=== PATIENT | female | born 1965 | race Caucasian/White ===

== ENCOUNTER 2018-12-22 06:33 | Observation (INO) | payer BC, OTHER ==
[2018-12-22] MEDS ORDERED: ASPIRIN 81 MG CHEWABLE TABLET ONE (07:09)
[2018-12-22] MEDS ORDERED: NITROGLYCERIN 0.4 MG/TAB SL ONE (07:09)
[2018-12-22 07:14] LABS: Absolute Lymphocytes (CBC) 2.7 K/uL (0.7-4.9); Basophils % 1.2 % (0-1.3); Hematocrit 40.2 % (36.0-45.0); Lymphocytes % 33.6 % (15.3-44.8); MPV 10.8 fL (7.6-11.3); RBC Red Blood Cell Count 4.38 M/uL (3.86-4.86)
[2018-12-22 07:15] LABS: Protime INR 1.02
[2018-12-22 07:31] LABS: ALT/SGPT 27 U/L (12-78); AST/SGOT 19 U/L (15-37); Albumin 3.4 g/dL (3.4-5.0); Alkaline Phosphatase 90 U/L (45-117); BUN Blood Urea Nitrogen 17 mg/dL (7-18); Bicarbonate 26 mmol/L (21-32); Bilirubin Direct 0.1 mg/dL (0-0.2); Bilirubin Total 0.3 mg/dL (0.2-1.0); Glucose Level 115 mg/dL (74-106); Magnesium 1.8 mg/dL (1.8-2.4); NT PRO-BNP 40 pg/mL (<125); Protein, Total 7.1 g/dL (6.4-8.2); Sodium Level 139 mmol/L (136-145); Troponin (Emerg Dept Use Only) < 0.02 ng/mL (0.0-0.045)
--- NOTE | 2018-12-22 08:00 | ER ---
Nurse's Notes [facility] Name: Anahy Irvin Age: 53 yrs Sex: Female : 1965 Arrival Date: 12/22/2018 Time: 06:35 Bed 8 Private MD: Luis Fernando Gold B Diagnosis: Chest pain, unspecified Presentation: 12/22 06:35 Presenting complaint: Patient states: that for the past week she has been have chest fc tightness. Has seen Dr Rodrigues in the past and told she had a leaking heart valve and enlarged heart but needed to lose wt before these could be treated. But today the pain got worse and now radiates down the left arm and up to her jaw. She is also having some shortness of breath and nausea. Transition of care: patient was not received from another setting of care. Onset of symptoms was December 14, 2018. Risk Assessment: Do you want to hurt yourself or someone else? Patient reports no desire to harm self or others. Initial Sepsis Screen: Does the patient meet any 2 criteria? No. Patient's initial sepsis screen is negative. Does the patient have a suspected source of infection? No. Patient's initial sepsis screen is negative. Care prior to arrival: None. 06:35 Method Of Arrival: Wheelchair fc 06:35 Acuity: OSIEL 3 fc Triage Assessment: 06:50 General: Appears uncomfortable, Behavior is appropriate for age. Pain: Complains of lp1 pain in chest. Cardiovascular: Patient's skin is warm and dry. Respiratory: Reports shortness of breath at rest Respiratory effort is even. GI: Abdomen is obese. Derm: Skin is pink, warm \T\ dry. 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 - Social history:: Smoking status: Patient/guardian denies using tobacco, Patient uses alcohol, but reports only rare drinking. Patient/guardian denies using street drugs. - Ebola Screening: : Patient negative for fever greater than or equal to 101.5 degrees Fahrenheit, and additional compatible Ebola Virus Disease symptoms Patient denies exposure to infectious person Patient denies travel to an Ebola-affected area in the 21 days before illness onset. Screenin:40 Abuse screen: Denies threats or abuse. Nutritional screening: No deficits noted. fc Tuberculosis screening: No symptoms or risk factors identified. Fall Risk None identified. Assessment: 07:05 General: Appears in no apparent distress. uncomfortable, ill, Behavior is calm, jl7 cooperative, appropriate for age. Pain: Complains of pain in under left breast/ left upper side Pain radiates to left jaw Pain currently is 5 out of 10 on a pain scale. at worst was 7 out of 10 on a pain scale. Quality of pain is described as pressure, throbbing, Pain began a week ago, worsening today Is intermittent. Neuro: Level of Consciousness is awake, alert, obeys commands, Oriented to person, place, time, situation. Cardiovascular: Heart tones present Patient's skin is warm and dry. Rhythm is regular. Respiratory: Reports shortness of breath Airway is patent Respiratory effort is even, unlabored, Respiratory pattern is regular, symmetrical, Breath sounds are clear bilaterally. GI: Abdomen is round non-distended, Reports nausea. Derm: Skin is pink, warm \T\ dry. 07:30 Reassessment: Patient appears in no apparent distress at this time. Patient is alert, jl7 oriented x 3, equal unlabored respirations, skin warm/dry/pink. Patient states feeling better. Patient states symptoms have improved. 08:30 Reassessment: Patient appears in no apparent distress at this time. No changes from jl7 previously documented assessment. Patient and/or family updated on plan of care and expected duration. Pain level reassessed. Patient is alert, oriented x 3, equal unlabored respirations, skin warm/dry/pink. 09:30 Reassessment: Patient appears in no apparent distress at this time. Patient and/or jl7 family updated on plan of care and expected duration. Pain level reassessed. Patient is alert, oriented x 3, equal unlabored respirations, skin warm/dry/pink. Vital Signs: 06:35 BP 160 / 83; Pulse 89; Resp 18; Temp 97.9(O); Pulse Ox 98% on R/A; Weight 156.94 kg fc (R); Height 5 ft. 2 in. (157.48 cm) (R); Pain 6/10; 07:30 BP 133 / 76; Pulse 72; Resp 16 S; Pulse Ox 99% on R/A; Pain 4/10; jl7 07:30 Pain 4/10; jl7 09:00 BP 135 / 75; Pulse 72; Resp 17; Pulse Ox 97% ; jl7 10:00 BP 120 / 79; Pulse 68; Resp 19; Pulse Ox 97% ; Pain 4/10; jl7 06:35 Body Mass Index 63.28 (156.94 kg, 157.48 cm) fc ED Course: 06:35 Patient arrived in ED. es 06:35 Arm band placed on Patient placed in an exam room, on a stretcher. fc 06:36 Luis Fernando Gold MD is Private Physician. es 06:38 Bernardo Borjas PA is PHCP. jr8 06:38 Nelson Argueta MD is Attending Physician. jr8 06:40 Patient has correct armband on for positive identification. Placed in gown. Bed in low fc position. Call light in reach. Side rails up X 1. air sampling and monitoring on. Pulse ox on. NIBP on. 06:40 No provider procedures requiring assistance completed. fc 06:50 Triage completed. fc 06:50 Inserted saline lock: 22 gauge in left forearm, using aseptic technique. Blood lp1 collected. 06:50 Patient maintains SpO2 saturation greater than 95% on room air. lp1 07:06 Saman Braun, JAIME is Primary Nurse. jl7 07:26 XRAY Chest (1 view) In Process Unspecified. EDMS 07:59 Asif Castro DO is Hospitalizing Provider. jr8 10:33 Patient admitted, IV remains in place. intact, No redness/swelling at site. jl7 Administered Medications: 07:12 Drug: Nitroglycerin 0.4 mg Route: Sublingual; jl7 07:30 Follow up: Pain 4/10 Adult; Response: No adverse reaction; Pain is decreased jl7 07:12 Drug: Aspirin Chewable Tablet 324 mg Route: PO; jl7 10:32 Follow up: Response: No adverse reaction jl7 Outcome: 07:59 Decision to Hospitalize by Provider. jr8 10:33 Admitted to Tele accompanied by tech, family with patient, via wheelchair, room 207, jl7 with chart, Report called to JAIME TREJO 10:33 Condition: stable 10:33 Discharge instructions given to patient, family, Instructed on the need for admit, Demonstrated understanding of instructions. 10:42 Patient left the ED. ms Signatures: Dispatcher [employer] Loyda Veloz Felicia, RN RN Dina Mathews ms Divina Will, RN RN lp1 Bernardo Borjas PA PA jr8 Saman Braun RN RN jl7
--- NOTE | 2018-12-22 08:01 | EDPHYS ---
Physician Documentation [facility] [place], [place] Name: Anahy Irvin Age: 53 yrs Sex: Female : 1965 Arrival Date: 12/22/2018 Time: 06:35 Bed 8 Private MD: Luis Fernando Gold B ED Physician Nelson Argueta HPI: 12/22 07:20 This 53 yrs old Female presents to ER via Wheelchair with complaints of Chest jr8 Pain. 07:20 The patient or guardian reports chest pain that is located primarily in the substernal jr8 area. Onset: acutely, today. The pain radiates to the left shoulder, left neck. Associated signs and symptoms: Pertinent positives: shortness of breath. The chest pain is described as a pressure. Duration: The patient or guardian reports a single episode, that lasted 2 hour(s). Modifying factors: The symptoms are alleviated by nothing. the symptoms are aggravated by activity. Severity of pain: At its worst the pain was moderate in the emergency department the pain has improved moderately. The patient has not experienced similar symptoms in the past. The patient has not recently seen a physician. Patient stated that she is currently undergoing weight loss protocol dom Mejia. Stated that she was diagnosed with valvular disease and enlarged heart. Has on/off chest pain that usually self resolves and is mild. Today had sudden severe chest pain with radiation. Improved but not going away now . 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 - Social history:: Smoking status: Patient/guardian denies using tobacco, Patient uses alcohol, but reports only rare drinking. Patient/guardian denies using street drugs. - Ebola Screening: : Patient negative for fever greater than or equal to 101.5 degrees Fahrenheit, and additional compatible Ebola Virus Disease symptoms Patient denies exposure to infectious person Patient denies travel to an Ebola-affected area in the 21 days before illness onset. ROS: 07:20 Eyes: Negative for injury, pain, redness, and discharge, ENT: Negative for injury, jr8 pain, and discharge, Neck: Negative for injury, pain, and swelling, Abdomen/GI: Negative for abdominal pain, nausea, vomiting, diarrhea, and constipation, Back: Negative for injury and pain, MS/Extremity: Negative for injury and deformity, Skin: Negative for injury, rash, and discoloration, Neuro: Negative for headache, weakness, numbness, tingling, and seizure. 07:20 Cardiovascular: Positive for chest pain, Negative for edema, orthopnea, palpitations, paroxysmal nocturnal dyspnea. 07:20 Respiratory: Positive for shortness of breath. Exam: 07:20 Eyes: Pupils equal round and reactive to light, extra-ocular motions intact. Lids and jr8 lashes normal. Conjunctiva and sclera are non-icteric and not injected. Cornea within normal limits. Periorbital areas with no swelling, redness, or edema. ENT: Nares patent. No nasal discharge, no septal abnormalities noted. Tympanic membranes are normal and external auditory canals are clear. Oropharynx with no redness, swelling, or masses, exudates, or evidence of obstruction, uvula midline. Mucous membranes moist. Neck: Trachea midline, no thyromegaly or masses palpated, and no cervical lymphadenopathy. Supple, full range of motion without nuchal rigidity, or vertebral point tenderness. No Meningismus. Abdomen/GI: Soft, non-tender, with normal bowel sounds. No distension or tympany. No guarding or rebound. No evidence of tenderness throughout. Back: No spinal tenderness. No costovertebral tenderness. Full range of motion. Skin: Warm, dry with normal turgor. Normal color with no rashes, no lesions, and no evidence of cellulitis. MS/ Extremity: Pulses equal, no cyanosis. Neurovascular intact. Full, normal range of motion. Neuro: Awake and alert, GCS 15, oriented to person, place, time, and situation. Cranial nerves II-XII grossly intact. Motor strength 5/5 in all extremities. Sensory grossly intact. Cerebellar exam normal. Normal gait. 07:20 Cardiovascular: Regular rate and rhythm with a normal S1 and S2. No gallops, murmurs, or rubs. Normal PMI, no JVD. No pulse deficits. Pitting edema present lower legs Respiratory: Lungs have equal breath sounds bilaterally, clear to auscultation and percussion. No rales, rhonchi or wheezes noted. No increased work of breathing, no retractions or nasal flaring. Vital Signs: 06:35 BP 160 / 83; Pulse 89; Resp 18; Temp 97.9(O); Pulse Ox 98% on R/A; Weight 156.94 kg fc (R); Height 5 ft. 2 in. (157.48 cm) (R); Pain 6/10; 07:30 BP 133 / 76; Pulse 72; Resp 16 S; Pulse Ox 99% on R/A; Pain 4/10; jl7 07:30 Pain 4/10; jl7 09:00 BP 135 / 75; Pulse 72; Resp 17; Pulse Ox 97% ; jl7 10:00 BP 120 / 79; Pulse 68; Resp 19; Pulse Ox 97% ; Pain 4/10; jl7 06:35 Body Mass Index 63.28 (156.94 kg, 157.48 cm) fc MDM: 06:38 Patient medically screened. jr8 07:52 HEART Score: History: Moderately Suspicious (1), ECG: Normal (0), Age: > 45 and < 65 jr8 years (1), Risk Factors: > or = 3 Risk factors for atherosclerotic disease (2), [Hypercholesterolemia] [Hypertension] [Obesity] Troponin: < or = 1 x Normal Limit (0). The patient was given aspirin in the Emergency Department. Data reviewed: vital signs, nurses notes, lab test result(s), EKG, radiologic studies, plain films. Data interpreted: Pulse oximetry: on room air is 98 %. Interpretation: normal. Counseling: I had a detailed discussion with the patient and/or guardian regarding: the historical points, exam findings, and any diagnostic results supporting the discharge/admit diagnosis, lab results, radiology results, the need for further work-up and treatment in the hospital. Physician consultation: Asif Castro DO was called at 07:56, was contacted at 07:56, regarding admission, to the telemetry unit. patient's condition, and will see patient in ED. 12/22 07:03 Order name: Basic Metabolic Panel; Complete Time: 07:45 8 12/22 07:03 Order name: CBC with Diff; Complete Time: 07:24 8 12/22 07:03 Order name: LFT's; Complete Time: 07:45 12/22 07:03 Order name: Magnesium; Complete Time: 07:45 12/22 07:03 Order name: NT PRO-BNP; Complete Time: 07:45 12/22 07:03 Order name: PT-INR; Complete Time: 07:24 12/22 07:03 Order name: Troponin (emerg Dept Use Only); Complete Time: 07:45 12/22 07:03 Order name: XRAY Chest (1 view); Complete Time: 08:39 [facility] 12/22 07:03 Order name: EKG; Complete Time: 07:04 12/22 07:03 Order name: Cardiac monitoring; Complete Time: 07:03 [facility] 12/22 08:35 Order name: CONS Physician Consult EDPA 12/22 08:35 Order name: Echo with Doppler EDPA 12/22 07:03 Order name: EKG - Nurse/Tech; Complete Time: 07:03 12/22 07:03 Order name: IV Saline Lock; Complete Time: 07:03 [facility] 12/22 07:03 Order name: Labs collected and sent; Complete Time: 07:03 8 12/22 07:03 Order name: O2 Per Protocol; Complete Time: 07:03 [facility] 12/22 07:03 Order name: O2 Sat Monitoring; Complete Time: 07:03 [facility] Administered Medications: 07:12 Drug: Nitroglycerin 0.4 mg Route: Sublingual; 7 07:30 Follow up: Pain 4/10 Adult; Response: No adverse reaction; Pain is decreased jl7 07:12 Drug: Aspirin Chewable Tablet 324 mg Route: PO; jl7 10:32 Follow up: Response: No adverse reaction jl7 Disposition: 12/23 04:20 Co-signature as Attending Physician, Nelson Argueta MD I agree with the assessment and ila plan of care. Disposition: 12/22/18 07:59 Hospitalization ordered by Asif Castro for Observation. Preliminary diagnosis is Chest pain, unspecified. - Bed requested for Telemetry/MedSurg (observation). - Status is Observation. ms - Condition is Stable. - Problem is new. - Symptoms have improved. UTI on Admission? No Signatures: Dispatcher [employer] Lisy Pardo, RN RN Nelson Hanson MD MD cha Chretien, Felicia, RN RN Dina Hernandez ms [place], Bernardo, PA PA jr8 Saman Braun RN RN jl7 Corrections: (The following items were deleted from the chart) 12/22 07:24 07:20 Cardiovascular: Regular rate and rhythm with a normal S1 and S2. No gallops, jr8 murmurs, or rubs. Normal PMI, no JVD. No pulse deficits. Respiratory: Lungs have equal breath sounds bilaterally, clear to auscultation and percussion. No rales, rhonchi or wheezes noted. No increased work of breathing, no retractions or nasal flaring. jr8 09:03 07:59 Hospitalization Ordered by Asif Castro DO for Observation. Preliminary dw diagnosis is Chest pain, unspecified. Bed requested for Telemetry/MedSurg (observation). Status is Observation. Condition is Stable. Problem is new. Symptoms have improved. UTI on Admission? No. jr8 10:42 09:03 12/22/2018 07:59 Hospitalization Ordered by Asif Castro DO for Observation. ms Preliminary diagnosis is Chest pain, unspecified. Bed requested for Telemetry/MedSurg (observation). Status is Observation. Condition is Stable. Problem is new. Symptoms have improved. UTI on Admission? No. dw
--- NOTE | 2018-12-22 08:28 | RAD REPORT ---
EXAM DESCRIPTION: Prabhu Single View12/22/2018 7:28 am CLINICAL HISTORY: Chest pain COMPARISON: 2014 FINDINGS: The lungs appear clear of acute infiltrate. The heart is mildly enlarged IMPRESSION: No acute abnormalities displayed
--- NOTE | 2018-12-22 08:37 | P.HP ---
Certification for Inpatient Patient admitted to: Observation With expected LOS: <2 Midnights Patient will require the following post-hospital care: None Practitioner: I am a practitioner with admitting privileges, knowledge of patient current condition, hospital course, and medical plan of care. Services: Services provided to patient in accordance with Admission requirements found in Title 42 Section 412.3 of the Code of Federal Regulations Patient History Date of Service: 12/22/18 Primary Care Provider: Dr. Gold; Cardiology-Dr. Rodrigues Reason for admission: Chest pain History of Present Illness: 53-year-old female with history of hypertension, depression/anxiety and obesity. Patient presented with chest pain that started around 5:00 a.m. this morning. It was mainly to the substernal region. It was a pressure-like sensation. She rated the pain about a 7/10. It would radiate up the neck and to both arms. It was associated with some dizziness. Patient came to the ER for further evaluation. In the ER patient evaluated. Blood pressure slightly elevated. She was given aspirin and nitroglycerin for the chest pain which improved. Initial cardiac enzymes unremarkable. EKG shows no significant EKG changes. CBC unremarkable. Sodium 139, potassium 4.0. BUN of 17, creatinine 0.8 with a GFR 71. Glucose 115. Patient was admitted for further evaluation. When I saw the patient in the ER, chest pain improved. Patient reports that she last saw Cardiology-Dr. Rodrigues in June of this year. She reported having a stress test and echocardiogram at that time. She believes that the stress test was normal. Echocardiogram showed some mild valve problems with some cardiomegaly. Patient has been taking carvedilol. This was recently increased to 25 mg 1 pill twice daily. She only took 25 mg daily recently. Patient also reports taking Dyazide in the past but not taking it since this causes too much urination. Patient does not smoke. No family history of heart disease. She is in the process of getting a gastric sleeve. She has lost 16 lb since June. Allergies morphine Allergy (Verified 11/07/14 09:04) Rash Pork/Porcine Containing Products Adverse Reaction (Verified 11/07/14 09:04) Shortness of breath Doxycycline Allergy (Uncoded 11/06/14 16:59) Rash Home medications list reviewed: Yes Home Medications: Carvedilol [Coreg*] 12.5 mg PO BID 09/13/14 Lorcaserin HCl [Belviq] 10 mg PO BID 09/13/14 - Past Medical/Surgical History Diabetic: No -: Lymphedema -: Morbid Obesity -: HTN -: Hyperlipidemia -: Depression/anxiety -: Nephrolithiasis -: x3 -: Hysterectomy -: Oophorectomy -: Kidney stone removed - multiple -: Tonsillectomy -: Carpal tunnel sx Psychosocial/ Personal History: Patient is single. She has 3 children. 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 - Family History Mother -: Hypertension Sister -: Hypertension Father -: Lung disease - Social History Smoking Status: Never smoker Alcohol use: Yes CD- Drugs: No Caffeine use: Yes Place of Residence: Home Review of Systems General: As per HPI Eyes: Unremarkable ENT: Unremarkable Respiratory: Unremarkable Cardiovascular: Chest Pain, Light Headedness, As per HPI Gastrointestinal: Unremarkable Genitourinary: Unremarkable Musculoskeletal: Unremarkable Integumentary: Unremarkable Neurological: Unremarkable Lymphatics: Unremarkable Physical Examination - Physical Exam General: Alert, In no apparent distress, Oriented x3, Cooperative HEENT: Atraumatic, Normocephalic, Mucous membr. moist/pink, Other Neck: Supple Respiratory: Clear to auscultation bilaterally, Normal air movement Cardiovascular: Normal pulses, Regular rate/rhythm Gastrointestinal: Normal bowel sounds, Soft and benign, Non-distended, No tenderness, No masses, No rebound, No guarding Musculoskeletal: No erythema, No tenderness, No warmth Integumentary: No tenderness/swelling, No erythema, No warmth, No cyanosis Neurological: Normal speech, Normal strength at 5/5 x4 extr, Normal tone, Normal affect - Studies Laboratory Data (last 24 hrs) 12/22/18 06:50: PT 12.0, INR 1.02 12/22/18 06:50: WBC 8.0, Hgb 14.1, Hct 40.2, Plt Count 295 12/22/18 06:50: Sodium 139, Potassium 4.0, BUN 17, Creatinine 0.84, Glucose 115 H, Magnesium 1.8, Total Bilirubin 0.3, AST 19, ALT 27, Alkaline Phosphatase 90 Assessment and Plan - Plan Impression: Chest pain Hypertension Depression/anxiety Obesity Plan: Chest pain: Patient will be admitted for further evaluation and treatment. Will keep the patient NPO at this time. Await Cardiology recommendation. Patient may require cardiac evaluation. Will check echocardiogram. Will continue to monitor cardiac enzymes and telemetry. Will continue with her carvedilol at 25 mg twice daily. Will provide aspirin, Lipitor. Will provide Protonix as chest pain may be noncardiac.. Will provide DVT prophylaxis-SCD. Will check tsh and fasting lipid panel. Await further recommendations from cardiology. If workup unremarkable likely discharge later today or tomorrow. Hypertension: Will increase carvedilol to 25 mg 1 pill twice daily. Previously on carvedilol 12.5 mg twice daily but recently increased to 25 mg twice daily but only taking once daily. Hold Dyazide at this time. Depression/anxiety: Will continue with her bupropion. Obesity: Patient in process of getting gastric sleeve in the near future. Discharge Plan: Home Plan to discharge in: 24 Hours - Advance Directives Does patient have a Living Will: No Does patient have a Durable POA for Healthcare: No - Code Status/Comfort Care Code Status Assessed: Yes (Patient is full code) Time Spent Managing Pts Care (In Minutes): 55
[2018-12-22] MEDS ORDERED: ONDANSETRON 4 MG/2 ML VIAL IV PRN (10:44)
[2018-12-22] MEDS ORDERED: BUPROPION HCL XL 150 MG TAB PO SCH (10:44)
[2018-12-22] MEDS ORDERED: TRAMADOL HCL 50 MG TAB PO PRN (10:44)
[2018-12-22] MEDS ORDERED: buPROPion HCL 100 MG TAB PO SCH (10:44)
[2018-12-22] MEDS ORDERED: ASPIRIN EC 81 MG TAB PO SCH (10:44)
[2018-12-22] MEDS ORDERED: MULTIVITAMIN TAB PO SCH (10:44)
[2018-12-22] MEDS ORDERED: NITROGLYCERIN 0.4 MG/TAB SL PRN (10:44)
[2018-12-22] MEDS ORDERED: ACETAMINOPHEN 500 MG TAB PO PRN (10:44)
--- NOTE | 2018-12-22 11:03 | EKG ---
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
[2018-12-22 11:06] VITALS: BMI 63.3
[2018-12-22 11:11] VITALS: O2SAT 97
--- NOTE | 2018-12-22 11:13 | ECHO ---
HEIGHT: 5 ft 2 in WEIGHT: 346 lb 0 oz DATE OF STUDY: 12/22/[address]: Asif Castro DO 2-DIMENSIONAL: YES M.MODE: YES DOPPLER: YES COLOR FLOW: YES TDS: YES PORTABLE: NO DEFINITY: NO BUBBLE STUDY: NO DIAGNOSIS: CHEST PAIN CARDIAC HISTORY: CATHERIZATION: NO SURGERY: NO PROSTHETIC VALVE: NO PACEMAKER: NO MEASUREMENTS (cm) DIASTOLIC (NORMALS) SYSTOLIC (NORMALS) IVSd (0.6-1.2) LA Diam (1.9-4.0) LVEF >50% LVIDd (3.5-5.7) LVIDs (2.0-3.5) %FS % LVPWd (0.6-1.2) Ao Diam 3.1 (2.0-3.7) 2 DIMENSIONAL ASSESSMENT: RIGHT ATRIUM: NORMAL LEFT ATRIUM: NORMAL RIGHT VENTRICLE: NORMAL LEFT VENTRICLE: NORMAL TRICUSPID VALVE: NORMAL MITRAL VALVE: NORMAL PULMONIC VALVE: NORMAL AORTIC VALVE: NORMAL PERICARDIAL EFFUSION: NONE AORTIC ROOT: NORMAL LEFT VENTRICULAR WALL MOTION: NORMAL. DOPPLER/COLOR FLOW: NORMAL. COMMENTS: NORMAL 2D ECHO WITH DOPPLER. TECHNOLOGIST: AWILDA BILLINGSLEY
[2018-12-22 12:59] VITALS: BP 141/69; TEMP 97.8
[2018-12-22 13:05] LABS: CKMB Creatine Kinase MB 1.1 ng/mL (0.3-3.6); Creatine Phosphokinase 101 U/L (26-192); Troponin I < 0.02 ng/mL (0.0-0.045)
[2018-12-22 13:07] LABS: Urine Appearance CLEAR; Urine Bilirubin NEGATIVE (NEG); Urine Blood NEGATIVE (NEG); Urine Color YELLOW; Urine Glucose NEGATIVE (NEG); Urine Protein NEGATIVE (NEG); Urine Urobilinogen 0.2 mg/dL (0.2-1.0)
[2018-12-22 13:10] LABS: Urine Microscopic Reflex ORDER UMIC
[2018-12-22 13:31] LABS: Urine RBC <5 /HPF (NONE SEEN)
[2018-12-22 13:32] LABS: Urine Bacteria >50 /HPF (<20); Urine Culture Reflex Order REFLEXED
--- NOTE | 2018-12-22 13:55 | P.DS ---
Admission Date: 12/22/18 Discharge Date: 12/22/18 Primary Care Provider: Dr. Gold; Cardiology-Dr. Rodrigues Disposition: ROUTINE DISCHARGE Discharge Condition: GOOD Reason for Admission: Chest pain Consultations: Cardiology-Dr. Crook Procedures: ECHO: Ejection fraction greater than 50% LEFT VENTRICULAR WALL MOTION: NORMAL. DOPPLER/COLOR FLOW: NORMAL. COMMENTS: NORMAL 2D ECHO WITH DOPPLER. Medical Problem List: Chest pain, likely noncardiac Hypertension Depression/anxiety Obesity Brief History of Present Illness: 53-year-old female with history of hypertension, depression/anxiety and obesity. Patient presented with chest pain that started around 5:00 a.m. this morning. It was mainly to the substernal region. It was a pressure-like sensation. She rated the pain about a 7/10. It would radiate up the neck and to both arms. It was associated with some dizziness. Patient came to the ER for further evaluation. In the ER patient evaluated. Blood pressure slightly elevated. She was given aspirin and nitroglycerin for the chest pain which improved. Initial cardiac enzymes unremarkable. EKG shows no significant EKG changes. CBC unremarkable. Sodium 139, potassium 4.0. BUN of 17, creatinine 0.8 with a GFR 71. Glucose 115. Patient was admitted for further evaluation. When I saw the patient in the ER, chest pain improved. Patient reports that she last saw Cardiology-Dr. Rodrigues in June of this year. She reported having a stress test and echocardiogram at that time. She believes that the stress test was normal. Echocardiogram showed some mild valve problems with some cardiomegaly. Patient has been taking carvedilol. This was recently increased to 25 mg 1 pill twice daily. She only took 25 mg daily recently. Patient also reports taking Dyazide in the past but not taking it since this causes too much urination. Patient does not smoke. No family history of heart disease. She is in the process of getting a gastric sleeve. She has lost 16 lb since June. Hospital Course: Patient presented with chest pain. 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 Patient was admitted for further evaluation. Cardiac enzymes unremarkable. Patient seen and evaluated by Cardiology. Echocardiogram showed normal ejection fraction. Cardiology recommended no further inpatient evaluation. At discharge will continue with carvedilol 25 mg 1 pill twice daily and aspirin 81 mg daily. Recommendation is to patient follow up with cardiology in 1-2 weeks to follow up this hospitalization. Patient may require further cardiac outpatient evaluation. Patient with hypertension. Her medication was recently increased. She had not increase her medication on home. Blood pressures were elevated in the ER. Medication adjusted. Patient will no longer take Dyazide as well. At discharge will continue with carvedilol 25 mg 1 pill twice daily. Recommend blood pressure last 150/80. Further adjustment to be done by her PCP. Patient with depression/anxiety. Patient has been under a lot of stress and activity. Will recommend rest for at least 1 week. At discharge will continue with her medication-Bupropion. Patient with obesity, BMI 63. She is in process of getting a gastric sleeve in the near future. Continue with lifestyle modification education. Patient will follow up with bariatric surgery as an outpatient. Vital Signs/Physical Exam: Temp Pulse Resp BP Pulse Ox 97.8 F 77 16 141/69 H 96 12/22/18 12:00 12/22/18 12:00 12/22/18 12:00 12/22/18 12:00 12/22/18 12:00 Laboratory Data at Discharge: WBC 8.0 K/uL (4.3-10.9) 12/22/18 06:50 Hgb 14.1 g/dL (12.0-15.0) 12/22/18 06:50 Hct 40.2 % (36.0-45.0) 12/22/18 06:50 Plt Count 295 K/uL (152-406) 12/22/18 06:50 PT 12.0 SECONDS (9.5-12.5) 12/22/18 06:50 INR 1.02 12/22/18 06:50 Sodium 139 mmol/L (136-145) 12/22/18 06:50 Potassium 4.0 mmol/L (3.5-5.1) 12/22/18 06:50 BUN 17 mg/dL (7-18) 12/22/18 06:50 Creatinine 0.84 mg/dL (0.55-1.3) 12/22/18 06:50 Glucose 115 mg/dL (74-106) H 12/22/18 06:50 Magnesium 1.8 mg/dL (1.8-2.4) 12/22/18 06:50 Total Bilirubin 0.3 mg/dL (0.2-1.0) 12/22/18 06:50 AST 19 U/L (15-37) 12/22/18 06:50 ALT 27 U/L (12-78) 12/22/18 06:50 Alkaline Phosphatase 90 U/L (45-117) 12/22/18 06:50 Troponin I < 0.02 ng/mL (0.0-0.045) 12/22/18 12:04 Home Medications: Acetaminophen [Tylenol Extra Strength] 1 tab PO DAILY PRN 12/22/18 Aspirin [Aspirin EC 81 MG] 81 mg PO DAILY #90 tablet. 12/22/18 Bupropion *Xl* [Wellbutrin XL*] 150 mg PO DAILY 12/22/18 Carvedilol [Coreg*] 25 mg PO BID 6AM 6PM #60 tab 12/22/18 New Medications: Aspirin [Aspirin EC 81 MG] 81 mg PO DAILY #90 tablet. Carvedilol [Coreg*] 25 mg PO BID 6AM 6PM #60 tab Patient Discharge Instructions: 1. Recommend follow up with her PCP in 1-2 weeks to follow up this hospitalization. 2. Patient presented with chest pain. 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 Patient was admitted for further evaluation. Cardiac enzymes unremarkable. Patient seen and evaluated by Cardiology. Echocardiogram showed normal ejection fraction. Cardiology recommended no further inpatient evaluation. At discharge will continue with carvedilol 25 mg 1 pill twice daily and aspirin 81 mg daily. Recommendation is to patient follow up with cardiology in 1-2 weeks to follow up this hospitalization. Patient may require further cardiac outpatient evaluation. 3. Patient with hypertension. Her medication was recently increased. She had not increase her medication on home. Blood pressures were elevated in the ER. Medication adjusted. Patient will no longer take Dyazide. At discharge will continue with carvedilol 25 mg 1 pill twice daily. Recommend blood pressure last 150/80. Further adjustment to be done by her PCP. 4. Patient with depression/anxiety. Patient has been under a lot of stress and activity. Will recommend rest for at least 1 week. At discharge will continue with her medication-Bupropion. 5. Patient with obesity, BMI 63. She is in process of getting a gastric sleeve in the near future. Continue with lifestyle modification education. Patient will follow up with bariatric surgery as an outpatient. Diet: AHA Activity: Ad kristine Time spent managing pt's care (in minutes): 55
--- NOTE | 2018-12-22 16:17 | CON ---
Chief Complaint: Chest pain. History Of Present Illness: Mrs. Irvin awakened with pain, it was in the neck, radiated down the le ft arm, left side of the chest, radiated under the breast, that all resolved in a few minutes and sin ce she has been in the hospital EKGs and enzymes are normal. About 5 months ago, she underwent a nuc lear stress test and echocardiogram that were normal. She has had an echocardiogram today that is co mpletely normal. No abnormal findings at all. She uses no tobacco. She does not have diabetes. Outpatient Medications: Coreg, spironolactone, hydrochlorothiazide, bupropion, and acetaminophen. She has hypertension, morbid obesity, and anxiety disorder. Allergies: SHE IS ALLERGIC TO MORPHINE, DOXYCYCLINE, AND PORK AND PORK-CONTAINING PRODUCTS. Physical Examination: Vital Signs: 5 feet 2 inches, 346 pounds. HEENT: Normal. Lungs: Clear. Cardiac: Exam normal. No murmur, rub, or gallop. Abdomen: Soft. Extremities: Normal. Electrocardiogram reveals sinus rhythm, low voltage, otherwise completely normal. Impression: This patient is not having an acute coronary syndrome. If the enzymes are normal, I thi nk we could better be discharged home with some reassurance. DAISY Voice ID: [id number] Report ID: [id number]
[2018-12-22] MEDS ORDERED: carvediloL 25 MG TAB PO SCH (18:00)
[2018-12-22] MEDS ORDERED: ATORVASTATIN 40 MG TAB PO SCH (21:00)
[2018-12-23] MEDS ORDERED: PANTOPRAZOLE 40MG TABLET PO SCH (06:30)
--- OUTSIDE RECORDS SUMMARY | 2018-12-31 19:08 | XMS REPORT ---
:1965 [facility] Address [address] [place] [address] Dr. Moy [address] [place] [id number] Care Team Providers Name Role Phone Unavailable Unavailable Unavailable Problems This patient has no known problems. Allergies, Adverse Reactions, Alerts This patient has no known allergies or adverse reactions. Medications This patient has no known medications. Encounters Start End Encounter Admission Attending Care Care Encounter Date/Time Date/Time Type Type Clinicians Facility Department ID 2018-10-11 2018-10-11 Outpatient [facility] [id number] 06:40:00 06:40:00
--- OUTSIDE RECORDS SUMMARY | 2018-12-31 19:08 | XMS REPORT | Summary of Care ---
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) Status: Active Malnutrition (263.9, E46) Status: Active Dizziness (780.4, R42) Status: Active Medications Name Dates Details Medications not documented Allergies and Adverse Reactions Name Dates Details Allergy history not documented Status: Procedures Procedure Dates Details [LH] CBC (without differential) Date: 25-Aug-2018 [QL] COMPREHENSIVE METABOLIC PANEL W/O eGFR Date: 25-Aug-2018 [QLH] FOLATE, SERUM Date: 25-Aug-2018 [QL] HEMOGLOBIN A1c Date: 25-Aug-2018 [QL] IRON AND TOTAL IRON BINDING CAPACITY Date: 25-Aug-2018 [QL] LIPID PANEL Date: 25-Aug-2018 [QL] PTH, INTACT (WITHOUT CALCIUM) Date: 25-Aug-2018 [QL] TSH, 3RD GENERATION Date: 25-Aug-2018 [QL] VITAMIN A (RETINOL) Date: 25-Aug-2018 [QL] VITAMIN B1, WHOLE BLOOD Date: 25-Aug-2018 [QL] VITAMIN B12 Date: 25-Aug-2018 [QL] VITAMIN D, 25-HYDROXY, LC/MS/MS Date: 25-Aug-2018 [QL] VITAMIN E (TOCOPHEROL) Date: 25-Aug-2018 Carotid artery bilateral Duplex [id number] Date: 25-Aug-2018 Immunization Name Dates Details Immunizations not documented Social History Name Dates Details Unknown if ever smoked Vital Signs Date Test Result Details [id number] BP Systolic 138 mm[Hg] Status: BP Diastolic 73 mm[Hg] Status: Height 63 in Status: Weight 362.2 lb Status: Body Mass Index Calculated 64.16 kg/m2 Status: Body Surface Area Calculated 2.49 m2 Status: Temperature 97.7 f Status: Heart Rate 83 /min Status: Results Date Description Value Details Results not documented Plan of Care Name Dates Details Planned Observations Planned Goals not documented Planned Encounters Appointment; JACE SEGURA RD On: 28-Sep-2018 10:30 Interventions Provided Labs/Procedures/Imaging[] CBC (without differential); To Be Done: 25 Aug 2018[ ] COMPREHENSIVE METABOLIC PANEL W/O eGFR; To Be Done: 25 Aug 2018[[facility]] FOLATE , SERUM; To Be Done: 25 Aug 2018[[facility]] HEMOGLOBIN A1c; To Be Done: 25 Aug 2018[ [facility]] IRON AND TOTAL IRON BINDING CAPACITY; To Be Done: 25 Aug 2018[[facility]] LIPID PANEL; To Be Done: 25 Aug 2018[QL] PTH, INTACT (WITHOUT CALCIUM); To Be Done: 25 Aug 2018[[facility]] TSH, 3RD GENERATION; To Be Done: 25 Aug 2018[[facility]] VITAMIN A ( RETINOL); To Be Done: 25 Aug 2018[QL] VITAMIN B1, WHOLE BLOOD; To Be Done: 25 Aug 2018[[facility]] VITAMIN B12; To Be Done: 25 Aug 2018[[facility]] VITAMIN D, 25-HYDROXY, LC/MS/MS; To Be Done: 25 Aug 2018[[facility]] VITAMIN E (TOCOPHEROL); To Be Done: 25 Aug 2018US Carotid artery bilateral Duplex [id number]; To Be Done: 25 Aug 2018 Instructions Name Dates Details Instructions not documented Encounters Appointment; KP CAGE D.O. On: 25-Aug-2018 10:00 Encounter Diagnosis: Problem not documented
== END 2018-12-22 15:26 | disposition home or self-care (01) ==
LOC: ER 06:33 → ERHOLD 08:24 → 2ND 10:32
PROVIDERS: ADMIT Family Medicine; ATTEND Family Medicine
DX: R07.9 Chest pain, unspecified (principal); I10 Essential (primary) hypertension; F41.8 Other specified anxiety disorders; E66.01 Morbid (severe) obesity due to excess calories; Z68.44 Body mass index [BMI] 60.0-69.9, adult; E78.5 Hyperlipidemia, unspecified
CPT/HCPCS: 93005; 93306; 87088; 85025; 87086; 80048; 36415; 83735; 82550; 85610; 80076; 84443; 87077; 87186; 84484 ×2; 82553; 84439; 83880; 71045; 99285; G0378 ×2; 81003; 81015

== ENCOUNTER 2019-07-23 09:32 | Emergency (ER) | payer OTHER ==
[2019-07-23 10:21] LABS: Absolute Lymphocytes (CBC) 1.7 K/uL (0.7-4.9); Basophils % 0.3 % (0-1.3); Hematocrit 45.5 % (36.0-45.0); Lymphocytes % 23.6 % (15.3-44.8); MPV 12.5 fL (7.6-11.3); RBC Red Blood Cell Count 4.97 M/uL (3.86-4.86)
[2019-07-23] MEDS ORDERED: NA CHLORIDE 0.9% 1,000 ML ONE ×2 (10:22→12:36)
[2019-07-23] MEDS ORDERED: ONDANSETRON 4 MG/2 ML VIAL ONE ×2 (10:22→12:42)
[2019-07-23] MEDS ORDERED: HYDROMORPHONE HCL 1 MG/ML INJ ONE (10:22)
[2019-07-23 10:47] LABS: Albumin 3.7 g/dL (3.4-5.0); Bilirubin Direct 0.2 mg/dL (0-0.2); Bilirubin Total 0.8 mg/dL (0.2-1.0); Potassium 3.6 mmol/L (3.5-5.1); Protein, Total 8.3 g/dL (6.4-8.2)
--- OUTSIDE RECORDS SUMMARY | 2019-07-23 11:18 | XMS REPORT ---
:1965 Author Organization [facility] t Address [address] [place] [address] Care Team Providers Name Role Phone NILES Attending Clinician Unavailable COLTON Attending Clinician Unavailable ABDIRAHMAN Attending Clinician Unavailable Problems Condition Condition Condition Status Onset Resolution Last Treating Co mments Source Name Details Category Date Date Treatment Clinician Date Malabsorpt Malabsorpt Problem Active U nivers ion due to ion due to it y of intoleranc intoleranc [place], not e, not Physici elsewhere elsewhere ans classified classified History of History of Problem Resolve Univers malnutriti malnutriti d it y of on on [place] Phys[facility] ans Dizziness Dizziness Problem Active Uni vers [facility] [place] [facility] Malnutriti Malnutriti Problem Active U nivers on on [facility] [place] [facility] Allergies, Adverse Reactions, Alerts This patient has no known allergies or adverse reactions. Medications This patient has no known medications. Vital Signs Vital Name Observation Time Observation Value Comments Source Height 2019-01-26 10:48:00 63 [in_us] [facility] Physician s Weight 2019-01-26 10:48:00 247.2 [lb_av] [facility] Physician s Body Mass Index 2019-01-26 10:48:00 43.79 kg/m2 Unive rsity of Calculated [place] Physician s BP Systolic 2018-08-25 10:11:00 138 mm[Hg] [facility] Physician s BP Diastolic 2018-08-25 10:11:00 73 mm[Hg] [facility] [place] [facility] Height 2018-08-25 10:11:00 63 [in_us] [facility] Physician s Weight 2018-08-25 10:11:00 362.2 [lb_av] [facility] [place] [facility] Body Mass Index 2018-08-25 10:11:00 64.16 kg/m2 [facility] Physician s Temperature 2018-08-25 10:11:00 97.7 [degF] [facility] Physician s Heart Rate 2018-08-25 10:11:00 83 /min [facility] Physician s Procedures Procedure Date / Time Performing Clinician Source Performed [LH] CBC (without 2019-01-26 00:00:00 [facility] differential) Physicians [QL] COMPREHENSIVE 2019-01-26 00:00:00 [facility] METABOLIC PANEL W/O eGFR Physici ans [QLH] FOLATE, SERUM 2019-01-26 00:00:00 [facility] Physicians [QLH] HEMOGLOBIN A1c 2019-01-26 00:00:00 [facility] ity [facility] Physicians [QLH] IRON AND TOTAL 2019-01-26 00:00:00 [facility] Physicians [QL] LIPID PANEL 2019-01-26 00:00:00 [facility] Physicians [QL] PTH, INTACT 2019-01-26 00:00:00 [facility] (WITHOUT CALCIUM) Physicians [QL] TSH, 3RD 2019-01-26 00:00:00 [facility] GENERATION Physicians [QL] VITAMIN A 2019-01-26 00:00:00 [facility] (RETINOL) Physicians [QL] VITAMIN B1, WHOLE 2019-01-26 00:00:00 [facility] BLOOD Physicians [QL] VITAMIN B12 2019-01-26 00:00:00 [facility] Physicians [QL] VITAMIN D, 2019-01-26 00:00:00 [facility] 25-HYDROXY, LC/MS/MS Physicians [QL] VITAMIN E 2019-01-26 00:00:00 [facility] (TOCOPHEROL) Physicians [LH] CBC (without 2018-08-25 00:00:00 [facility] differential) Physicians [QL] COMPREHENSIVE 2018-08-25 00:00:00 [facility] METABOLIC PANEL W/O eGFR Physici ans [QLH] FOLATE, SERUM 2018-08-25 00:00:00 [facility] Physicians [QLH] HEMOGLOBIN A1c 2018-08-25 00:00:00 [facility] ity [facility] Physicians [QLH] IRON AND TOTAL 2018-08-25 00:00:00 [facility] IRON BINDING CAPACITY Physicians [QLH] LIPID PANEL 2018-08-25 00:00:00 [facility] Physicians [QL] PTH, INTACT 2018-08-25 00:00:00 [facility] (WITHOUT CALCIUM) Physicians [QL] TSH, 3RD 2018-08-25 00:00:00 [facility] GENERATION Physicians [QLH] VITAMIN A 2018-08-25 00:00:00 [facility] (RETINOL) Physicians [QL] VITAMIN B1, WHOLE 2018-08-25 00:00:00 [facility] BLOOD Physicians [QLH] VITAMIN B12 2018-08-25 00:00:00 [facility] Physicians [QL] VITAMIN D, 2018-08-25 00:00:00 [facility] 25-HYDROXY, LC/MS/MS Physicians [[facility]] VITAMIN E 2018-08-25 00:00:00 [facility] (TOCOPHEROL) Physicians US Carotid artery 2018-08-25 00:00:00 [facility] bilateral Duplex [id number] Physician s Encounters Start End Encounter Admission Attending Care Care Encounter Source Date/Time Date/Time Type Type Clinicians Facility Department ID 2019-07-05 Inpatient [facility] MIKE [id number] [facility] 06:42:00 2019-07-13 2019-07-13 Emergency E [facility] [id number] [facility] 17:45:00 17:45:00 2019-07-05 2019-07-05 LEXX Chu [facility] [id number] Univers 08:00:00 08:00:00 t; chloe GOODRICH D.O. [place] Ree GOODRICH D.O. ans 2019-06-29 2019-06-29 LEXX Chu [id number] Univers 10:00:00 10:00:00 t; chloe GOODRICH D.O. [place] Ree GOODRICH D.O. ans 2019-06-05 2019-06-05 LEXX Chu [id number] Univers 10:00:00 10:00:00 t; chloe GOODRICH D.OKieran [place] Ree GOODRICHOKieran ans 2019-05-04 2019-05-04 LEXX Chu [id number] Univers 09:30:00 09:30:00 t; chloe GOODRICH D.O. [place] KP, Physici D.O. ans 2019-03-22 2019-03-22 [facility] FADUMOIN-RIKLI LEXX UTP [id number] Univers 11:00:00 11:00:00 t; JACE Correa ity of [address] [facility] Physi ci RD ans 2019-02-26 2019-02-26 AppointLEXX Tuttle [id number] Univers 13:30:00 13:30:00 t; [facility]ALES [facility] 2019-02-26 2019-02-26 [facility] FADUMOIN-RIKLI LEXX UTP [id number] Univers 13:00:00 13:00:00 t; JACE Correa ity of [address] [facility] Physi ci RD ans 2019-01-26 2019-01-26 AppointLEXX Schuler [id number] Univers 11:15:00 11:15:00 t; chloe GOODRICH D.OKieran [place] KP, Physici D.O. ans 2019-01-26 2019-01-26 AppointLEXX Schuler General [id number] Univers 10:15:00 10:15:00 t; KP, Surgery - johnathony of Osmar CAGE. [facility] as KP, Physici D.O. ans 2019-01-11 2019-01-11 Appointclaudette THORNEIN-RIKLI LEXX UTP [id number] Univers 11:00:00 11:00:00 t; JACE Correa ity of [address] [facility] Physi ci RD ans 2018-12-14 2018-12-14 [facility] FADUMOIN-RIKLI LEXX UTP [id number] Univers 11:00:00 11:00:00 t; JACE Correa ity of [address] [facility] Physi ci RD ans 2018-10-11 2018-10-11 Appointclaudette CAGE, LEXX HALLMAN [id number] Univers 08:00:00 08:00:00 t; KP ity Ed RodríguezOKieran [place] KP, Physici D.O. ans 2018-10-11 2018-10-11 Outpatient MHFB MIKE [id number] MHFB 06:40:00 06:40:00 2018-09-28 2018-09-28 Appointmen [facility] [id number] Univers 10:30:00 10:30:00 t; JACE Correa, ity of ALFREDO [facility] [place], JACE, Physi ci RD ans 2018-08-25 2018-08-25 Appointmen NILES, [facility] [id number] Univers 10:00:00 10:00:00 t; KP, Surgery - ity of Daniela CAGE [facility], Medical Physici D.O. [place] ans Results Test Description Test Time Test Comments Results Result Comments Source [[facility]] VITAMIN D, 25-HYDROXY, LC/MS/MS 2019-01-26 12:00:01 Test Item Value Reference Range Interpretation Comme nts Vitamin D, 25-OH, Total 48.0 ng/ml 30.0-100.0 Refe rence range is based on (test code = Vitamin D, robert mmendations in the 25-OH, Total) EndocrineSocie ty Clinical Practice Guideline (J Cl in Endocrinol [id number];96:19 11-1930) [facility] Physicians[[facility]] CMP [id number] 12:00:01 Test Item Value Reference Range Interpretation Comments Sodium Level 139 {mEq/l} 135-145 (test code = 2951-2) Potassium Level 4.5 {mEq/l} 3.5-5.1 (test code = 2823-3) Chloride Level 102 {mEq/l} 95-109 (test code = 5-0) Carbon Dioxide 31 {mEq/l} 24-32 (test code = 2027-9) AGAP (test code = 10.5 {mEq/l} 10.0-20.0 98806-7) Glucose Lvl (test 84 mg/dl 70-99 Adult refe rence range code = 2345-7) values reflec t the clinical guidel inesof the [place] Diabet es Association. Creatinine Lvl 0.90 mg/dl 0.50-1.40 (test code = 2160-0) Blood Urea 15 mg/dl 7-22 Nitrogen (test code = 3094-0) BUN/Creatinine 17 6-25 Ratio (test code = 3097-3) Total Protein 8.3 g/dl 6.4-8.4 (test code = 2885-2) Albumin Lvl (test 4.1 g/dl 3.5-5.0 code = 1751-7) Globulin (test 4.2 g/dl 2.7-4.2 code = 76196-4) A/G Ratio (test 1.0 0.7-1.6 code = 1759-0) Calcium Level 9.5 mg/dl 8.5-10.5 Total (test code = 80184-5) ALT (test code = 38 u/l 0-65 1743-4) AST (test code = 20 u/l 0-37 21572-6) Bili Total (test 0.5 mg/dl 0.2-1.3 code = 1975-2) Alk Phos (test 98 u/l 39-136 The pediatric reference code = 1783-0) ranges for is test represent a CLSI-basedtrans ference of the CALIPER muriel abase of pediatric refer ence intervals to eSiemens Alvord analyzer (Clinical Biochemistry 46 (2013): 6660-9727). [facility] has not internally validated these reference ranges and therefore they should be used only in th e context of a thoroughcl inical assessment. eGFR (test code = 73 The eGFR i s calculated 04906-6) {ML/MIN/1.7} using the CKD-E PI formula. In mos t young, healthyindividu als the eGFR will be >9 0 mL/min/1.73m2. The eGFR declines with a ge. AneGFR of 60-89 may be normal in some population s, particularly th e elderly, forwhom the CKD -EPI formula has not been extensively lia idated. Use of the eGFR isnot recommended in the following populations:Ind ividuals with unstable c reatinine concentrations, including patient s and those with seri ous co-morbid conditions.Parris ents with extremes in mus rafy mass or diet.The muriel a above are obtained fr om the National Kidney Disease Education Progr am(NKDEP) which additiona lly recommends that when the eGFR is used in patientswith ex tremes of body mass index for purposes of eugenia g dosing, the eGFR should be multiplied by t he estimated BMI. [facility]] IRON AND TOTAL IRON BINDING CAPACITY 2019-01-26 12:00:01 Test Item Value Reference Range Interpretation Comments Iron (test code = 2498-4) 82 ug/dL 30-160 % Satur Fe (test code = 2502-3) 20 % 12-57 TIBC (test code = 2500-7) 407 ug/dL 228-428 UIBC (test code = UIBC) 325 ug/dL 110-370 [facility]] LIPID [id number] 12:00:01 Test Item Value Reference Range Interpretation Comments Chol; Above High Threshold (test 214 mg/dl <=199 code = 2093-3) Trig; Above High Threshold (test 187 mg/dl <=149 code = 2571-8) HDL Cholesterol; Below Low 48 mg/dl >=61 Threshold (test code = 2085-9) CHD Risk (test code = 33912-0) 4.46 3.90-5.80 LDL; Above High Threshold (test 129 mg/dl <=99 code = 23785-0) VLDL (test code = VLDL) 37 [facility]] TSH, 3RD [id number] 12:00:01 Test Item Value Reference Range Interpretation Comments TSH (test code = 24508-1) 1.160 {uIU/ml} 0.360-3.740 [facility]] VITAMIN [id number] 12:00:01 Test Item Value Reference Range Interpretation Comments Vitamin B12 Level; Above High 1399 pg/ml 254-1320 Threshold (test code = 2132-9) [facility]] FOLATE, [id number] 12:00:01 Test Item Value Reference Range Interpretation Comments Folate Level (test code = 2284-8) 22.3 ng/ml >=3.0 [facility][] CBC (without differential)2019-01-26 12:00:01 Test Item Value Reference Range Interpretation Comments WBC (test code = 6690-2) 8.1 {K/CMM} 3.7-10.4 RBC (test code = 789-8) 4.62 {M/CMM} 4.20-5.40 Hgb (test code = 718-7) 14.7 g/dl 12.0-16.0 Hct (test code = 39777-9) 43.4 % 36.0-48.0 MCV (test code = 787-2) 94.0 fL 80.0-98.0 MCH; Above High Threshold (test 31.8 pg 27.0-31.0 code = 785-6) MCHC (test code = 786-4) 33.8 g/dl 32.0-36.0 RDW (test code = 788-0) 14.4 % 11.5-14.5 Platelet (test code = 36835-6) 339 {K/CMM} 133-450 Mean Platelet Volume (test code 10.2 fL 7.4-10.4 = 04940-9) [facility] Physicians[[facility]] PTH, INTACT (WITHOUT CALCIUM)2019-01-26 12:00:01 Test Item Value Reference Range Interpretation Comments Parathyroid Hormone Intact (test 40.1 pg/ml 18.4-80.1 code = 2731-8) [facility]] HEMOGLOBIN [id number] 12:00:01 Test Item Value Reference Range Interpretation Comments Hemoglobin A1c; Above High Threshold 5.8 % <=5.6 (test code = 4548-4) [facility] Physicians[[facility]] VITAMIN B1, WHOLE [id number] 12:00:01 Test Item Value Reference Range Interpretation Comments Vitamin B1 104.9 66.5-200.0 This test was d eveloped and its Level (test nmol/L performance code = characteristics determined by Vitamin B1 [facility]. It has not been Level) cleared orappro margarita by the Food and Drug Administration. Performed At: [facility] [address] [place], [place] [id number] ra Ines LUDWIG Ph:[phone] [facility] Physicians[H] Vit [id number] 12:00:01 Test Item Value Reference Range Interpretation Comments Vitamin A 45.1 ug/dL 20.1-62.0 Reference inter vals for vitamin Level (test A determined fr om code = [facility] studies. Vitamin A Individuals wit h vitamin A less Level) than 20ug/dL ar e considered vitamin A defic ient and those withserum aguila ntrations less than 10 ug/dL a re consideredsever lukas deficient.This test was developed and i ts performance characteristics determined by [facility]. It has not been cleared orappro margarita by the Food and Drug Administration. Performed At: [address] [id number] ra Ines LUDWIG Ph:[phone] [facility] Physicians[H] Vitamin E [id number] 12:00:01 Test Item Value Reference Range Interpretation Comments Alpha-Tocoph 15.9 mg/L 7.0-25.1 This test was d eveloped and its dean (test performance code = characteristics determined by Alpha-Tocoph [facility]. It has not been cleared dean) orapproved by [facility] Food and Drug Administration. Gamma-Tocoph 2.1 mg/L 0.5-5.5 This test was d eveloped and its dean (test performance code = characteristics determined by Gamma-Tocoph [facility]. It has not been cleared dean) orapproved by t Food and Drug Administration. Reference intervals for a lpha and gamma-tocophero ldetermined from National Health and Nutrition ExaminationSurv , 7654-9133. Individuals wit h alpha-tocophero l levelsless than 5.0 mg/L are co nsidered vitamin E deficient.Per formed At: [facility] [place], [place] [id number] ra Ines LUDWIG Ph:[phone] [facility] Physicians
--- OUTSIDE RECORDS SUMMARY | 2019-07-23 11:18 | XMS REPORT | Summary of Care ---
:1965 Author Name Jesi Garcia Address Unavailable Unavailable , Care Team Providers Name Role Phone Jesi Garcia Unavailable Unavailable RUBEN LUDWIG Unavailable Unavailable COLTON AZEVEDO [place] Unavailable Unavailable MARY ANN LUDWIG Unavailable Unavailable NILES VAZQUEZ Unavailable Unavailable Unavailable Unavailable Unavailable Functional Status Name Dates Details Functional status health issues are not documented Status: Name Dates Details Cognitive status health issues are not documented Status: Problems Name Dates Details Dizziness (780.4, R42) Status: Active Malabsorption due to intolerance, not elsewhere classified ( 579.8, K90.49) Status: Active Malnutrition (263.9, E46) Status: Active Medications Name Dates Details Medications not documented Allergies and Adverse Reactions Name Dates Details Allergy history not documented Status: Past Medical History Name Dates Details History of Malabsorption due to intolera nce, not elsewhere classified (579.8, K90.49) Status: Resolved History of malnutrition (V12.1, Z86.39) Status: Resolved Procedures Procedure Dates Details Procedures not documented Immunization Name Dates Details Immunizations not documented Social History Name Dates Details Tobacco smoking consumption unknown (finding) Vital Signs Date Test Result Details No Known Vitals to report Results Date Description Value Details Results not documented Plan of Care Name Dates Details Planned Observations Planned Goals not documented Planned Encounters Appointment; KP CAGE D.O. On: 20-Jul-2019 1 1:45 Interventions Provided Discussion/SummaryGuideline Used: Chepe MISTPatient is calling to report that she has onset of anklet swelling and redness. She is status post Gastric sleeve and gallbladder removal on 07/05/19. Paged Morales Calloway, who called back immediately. She is driving. She took down patient's information and will call patient back. Informed patient, patient verbalized understanding. Instructions Name Dates Details Instructions not documented Encounters Appointment; KP CAGE D.O. On: 25-Aug-2018 10 :00 Encounter Diagnosis: Problem not documented Appointment; JACE SEGURA RD On: 28-Sep-2018 10 :30 Encounter Diagnosis: Problem not documented Appointment; KP CAGE D.O. On: 11-Oct-2018 8 :00 Encounter Diagnosis: Problem not documented Appointment; JACE SEGURA RD On: 14-Dec-2018 1 1:00 Encounter Diagnosis: Problem not documented Appointment; JACE SEGURA RD On: 11-Jan-2019 1 1:00 Encounter Diagnosis: Problem not documented Appointment; KP CAGE D.O. On: 26-Jan-2019 10 :15 Encounter Diagnosis: Problem not documented Appointment; KP CAGE D.O. On: 26-Jan-2019 11 :15 Encounter Diagnosis: Problem not documented Appointment; JACE SEGURA RD On: 26-Feb-2019 13 :00 Encounter Diagnosis: Problem not documented Appointment; MORALES CALLOWAY APRN On: 26-Feb-2019 13:30 Encounter Diagnosis: Problem not documented Appointment; JACE SEGURA RD On: 22-Mar-2019 1 1:00 Encounter Diagnosis: Problem not documented Appointment; KP CAGE D.O. On: 04-May-2019 9 :30 Encounter Diagnosis: Problem not documented Appointment; KP CAGE D.O. On: 05-Jun-2019 1 0:00 Encounter Diagnosis: Problem not documented Appointment; KP CAGE D.O. On: 29-Jun-2019 10 :00 Encounter Diagnosis: Problem not documented Appointment; KP CAGE D.O. On: 05-Jul-2019 8 :00 Encounter Diagnosis: Problem not documented
--- NOTE | 2019-07-23 11:35 | RAD REPORT ---
EXAM DESCRIPTION: RAD - Chest Single View - 07/23/2019 10:33 am CLINICAL HISTORY: ABDOMINAL DISTENTION, back pain COMPARISON: Portable December 2018 TECHNIQUE: AP portable chest image was obtained 07/23/2019 10:33 am . FINDINGS: Lungs are clear. Heart and vasculature are normal. No measurable pleural effusion and no p neumothorax. No acute bony abnormality seen. No acute aortic findings suspected. IMPRESSION: No acute cardiopulmonary process. Portable technique and large body habitus limit the examination.
--- NOTE | 2019-07-23 12:09 | RAD REPORT ---
EXAM DESCRIPTION: CT - Abdomen Pelvis W Contrast - 07/23/2019 11:55 am CLINICAL HISTORY: ABD PAIN COMPARISON: No comparisons TECHNIQUE: Biphasic, helical CT imaging of the abdomen and pelvis was performed following 100 ml non -ionic IV contrast. No oral contrast. All CT scans are performed using dose optimization technique as appropriate and may include automated exposure control or mA/KV adjustment according to patient size. FINDINGS: Moderate to moderately severe hydronephrosis and hydroureter present down to the pelvic in let where there is a 6 millimeter obstructing calculus. Right renal function is delayed relative to t he left. Small nonobstructing calculi noted on the left. Both kidneys show areas of cortical thinning probably from old infectious/inflammatory process. No pyelonephritis or mass suspected. No urinary b ladder abnormality. The liver, spleen, and pancreas show no suspicious findings. Cholecystectomy clips are present. No bi liary tree dilatation. Gastric sleeve surgical changes are present. No wall thickening, mass or significant finding associat ed with the recent procedure. Large and small bowel show no acute findings. Uterus is absent. Ovaries are absent or atrophic. No adnexal mass. No free air, free fluid or inflammatory stranding. No mass or bulky lymphadenopathy. Fat only umbi lical hernia is present small in size. Mild bony degenerative change. No acute bone finding. IMPRESSION: Moderate to moderately severe hydronephrosis and hydroureter down to the pelvic inlet on the right where there is a 6 millimeter obstructing calculus. No acute or significant findings pertaining to the recent gastric sleeve procedure.
[2019-07-23] MEDS ORDERED: KETOROLAC 30 MG/ML INJ ONE (12:36)
[2019-07-23] MEDS ORDERED: CEFTRIAXONE/SWI 1gm 1 GM/10 ML SYR ONE (12:36)
[2019-07-23 12:48] LABS: Urine Blood 2+ (NEG); Urine Glucose NEGATIVE (NEG); Urine Protein 2+ (NEG); Urine pH 5.5 (5.0-7.0)
[2019-07-23 13:16] LABS: Blood Morphology Comment NOT SEEN (NOT SEEN); Platelet Estimate ADEQ; Urine White Blood Cell Casts OK
[2019-07-23] MEDS ORDERED: PROMETHAZINE INJ 25 MG/ML AMP ONE (14:30)
[2019-07-23 15:30] VITALS: TEMP 98
[2019-07-23 15:39] VITALS: BP 131/71; O2SAT 95
--- NOTE | 2019-07-23 19:59 | ER ---
Nurse's Notes [facility] Name: Anahy Irvin Age: 53 yrs Sex: Female : 1965 Arrival Date: 07/23/2019 Time: 09:34 Bed 7 Private MD: Diagnosis: Hydronephrosis with renal and ureteral calculous obstruction-right 6 mm , severe hydro;Obesity, unspecified Presentation: 07/22 09:44 Chief complaint: Patient states: R low back pain that radiates towards R groin with ss nausea, began this morning. Pt reports recent gastric sleeve (07-05-19) and recently transitioned from liquid diet to pureed, but is unsure whether her symptoms are related to her surgery or possible a kidney stone. Coronavirus screen: Proceed with normal triage. Patient denies a cough. Patient denies shortness of breath or difficulty breathing. Patient denies measured and/or subjective temperature greater than 100.4F prior to today's visit. Patient denies travel on a cruise ship or to a country the [facility] currently lists as an affected area. Patient denies contact with known and/or suspected case of COVID-19. Ebola Screen: Patient denies exposure to infectious person. Patient denies travel to an Ebola-affected area in the 21 days before illness onset. Initial Sepsis Screen: Does the patient meet any 2 criteria? No. Patient's initial sepsis screen is negative. Does the patient have a suspected source of infection? No. Patient's initial sepsis screen is negative. Risk Assessment: Do you want to hurt yourself or someone else? Patient reports no desire to harm self or others. Onset of symptoms was July 23, 2019. 09:44 Method Of Arrival: Wheelchair 09:44 Acuity: OSIEL 3 ss Historical: - Allergies: 09:48 Doxycycline; ss 09:48 Morphine; ss 09:48 tramadol; hallucinations; ss - PMHx: 09:48 Enlarged Heart; Hypertension; Kidney stones; leaking heart valve; Obesity; ss - PSHx: 09:48 Lithotripsy; ss - Immunization history:: Adult Immunizations up to date. - Social history:: Smoking status: Patient denies any tobacco usage or history of. - Family history:: not pertinent. Screenin:58 Abuse screen: Denies threats or abuse. Denies injuries from another. Nutritional jl7 screening: No deficits noted. Tuberculosis screening: No symptoms or risk factors identified. 10:53 Fall Risk IV access (20 points). Total [place] Fall Scale indicates No Risk (0-24 pts). jl7 Assessment: 09:58 Reassessment: Dr. Argueta at bedside. jl7 10:20 General: Appears in no apparent distress. uncomfortable, Behavior is calm, cooperative, jl7 appropriate for age. Pain: Complains of pain in right upper quadrant and right lower quadrant Pain currently is 10 out of 10 on a pain scale. Quality of pain is described as pressure, Pain began 1 day ago. Is continuous. Neuro: Level of Consciousness is awake, alert, obeys commands, Oriented to person, place, time, situation. Cardiovascular: Patient's skin is warm and dry. Respiratory: Airway is patent Respiratory effort is even, unlabored, Respiratory pattern is regular, symmetrical. GI: Abdomen is round non-distended, Stools are reported to be loose, Last BM was July 21, 2019. Derm: Skin is pink, warm \\T\\ dry. 10:40 Reassessment: Pt unable to drink oral contrast due to gastric sleeve, aware and jl7 orders for pt to intake what she can until we get lab results back. Pt notified and verbalizes understanding. 10:55 Reassessment: Pt reports pain decreased, rated 5/10 and states "It's mostly hurting jl7 right here now." Points to RLQ, pt unsure if she has her appendix or not. 12:00 Reassessment: Patient appears in no apparent distress at this time. Patient and/or jl7 family updated on plan of care and expected duration. Pain level reassessed. Patient is alert, oriented x 3, equal unlabored respirations, skin warm/dry/pink. 13:00 Reassessment: Patient appears in no apparent distress at this time. Patient and/or jl7 family updated on plan of care and expected duration. Pain level reassessed. Patient is alert, oriented x 3, equal unlabored respirations, skin warm/dry/pink. 14:00 Reassessment: Patient appears in no apparent distress at this time. Patient and/or jl7 family updated on plan of care and expected duration. Pain level reassessed. Patient is alert, oriented x 3, equal unlabored respirations, skin warm/dry/pink. 15:00 Reassessment: Patient appears in no apparent distress at this time. Patient and/or jl7 family updated on plan of care and expected duration. Pain level reassessed. Patient is alert, oriented x 3, equal unlabored respirations, skin warm/dry/pink. Vital Signs: 09:44 Resp 18; Temp 98.0; Weight 143.79 kg; Height 5 ft. 3 in. (160.02 cm); Pain 10/10; ss 09:48 BP 154 / 70; Pulse 84; Pulse Ox 95% on R/A; ss 10:53 BP 129 / 68; Pulse 90; Resp 16; Pulse Ox 96% ; Pain 5/10; jl7 11:30 BP 125 / 78; Pulse 86; Resp 16 S; Pulse Ox 97% on R/A; jl7 12:30 BP 129 / 64; Pulse 79; Resp 16; Pulse Ox 98% ; jl7 13:00 BP 124 / 64; Pulse 88; Resp 16; Pulse Ox 95% ; sv 13:30 BP 124 / 66; Pulse 90; Resp 16; Pulse Ox 97% ; sv 15:00 BP 131 / 71; Pulse 88; Resp 16; Pulse Ox 95% ; jl7 09:44 Body Mass Index 56.15 (143.79 kg, 160.02 cm) ED Course: 09:34 Patient arrived in ED. fj1 09:36 Nelson Argueta MD is Attending Physician. ila 09:37 Rolando Swain, JAIME is Primary Nurse. em 09:47 Triage completed. ss 09:48 Arm band placed on right wrist. ss 09:58 Patient has correct armband on for positive identification. Placed in gown. Bed in low jl7 position. Call light in reach. Side rails up X2. Pulse ox on. NIBP on. 10:20 Initial lab(s) drawn, by ED staff, sent to lab. jl7 10:30 Inserted saline lock: 20 gauge in left antecubital area, using aseptic technique. dh3 10:34 Chest Single View XRAY In Process Unspecified. EDMS 10:51 Saman Braun, JAIME is Primary Nurse. jl7 11:46 EKG done, by budget technician. reviewed by Nelson Argueta MD. at1 11:56 CT Abd/Pelvis - PO and IV Contrast In Process Unspecified. EDMS 12:41 Urine collected: clean catch specimen, cloudy. dh3 15:23 No provider procedures requiring assistance completed. Patient transferred, IV remains jl7 in place. intact, No redness/swelling at site. Administered Medications: 10:40 Drug: NS 0.9% 1000 ml Route: IV; Rate: 1 bolus; Site: left antecubital; jl7 11:40 Follow up: Response: No adverse reaction; IV Status: Completed infusion; IV Intake: jl7 1000ml 10:42 Drug: Zofran (Ondansetron) 4 mg Route: IVP; Site: left antecubital; jl7 11:00 Follow up: Response: No adverse reaction; Nausea is decreased jl7 10:45 Drug: Dilaudid 1 mg Route: IVP; Site: left antecubital; jl7 11:00 Follow up: Response: No adverse reaction; Pain is decreased jl7 12:38 Drug: Rocephin 1 grams Route: IV; Rate: per protocol; Site: left antecubital; jl7 12:41 Follow up: Response: No adverse reaction; IV Status: Completed infusion jl7 12:38 Drug: NS 0.9% 1000 ml Route: IV; Rate: 1 bolus; Site: left antecubital; jl7 13:30 Follow up: Response: No adverse reaction; IV Status: Completed infusion; IV Intake: jl7 1000ml 12:40 Drug: TORadol 30 mg Route: IVP; Site: left antecubital; jl7 13:10 Follow up: Response: No adverse reaction sv 12:43 Drug: Zofran (Ondansetron) 4 mg Route: IVP; Site: left antecubital; jl7 13:10 Follow up: Response: No adverse reaction sv 14:26 Drug: Phenergan 12.5 mg Route: IVP; Site: left antecubital; jl7 14:44 Follow up: Response: No adverse reaction; Nausea is decreased jl7 Intake: 11:40 IV: 1000ml; Total: 1000ml. jl7 13:30 IV: 1000ml; Total: 2000ml. jl7 Outcome: 12:32 ER care complete, transfer ordered by MD. thorpe 15:23 Transferred by ground EMS to [facility], Transfer form completed. X-rays sent jl7 w/ patient. 15:23 Condition: stable 15:23 Discharge instructions given to patient, Instructed on the need for transfer. 15:24 Patient left the ED. jl7 Signatures: Dispatcher [employer] Kristin Morgan, RN RN Nelson Washington MD MD cha Munoz, Edgar RN Keena Sher, RN Korin Mendez, lead electrical engineer EKG Tat1 Saman Braun RN RN jl7 Alisson Garvey [facility] Balbir Tom 1 Corrections: (The following items were deleted from the chart) 15:22 13:31 Response: No adverse reaction; IV Status: Completed infusion jlArabella jl7
--- NOTE | 2019-07-23 19:59 | EDPHYS ---
Physician Documentation [facility] Name: Anahy Irvin Age: 53 yrs Sex: Female : 1965 Arrival Date: 07/23/2019 Time: 09:34 Bed 7 Private MD: Nelson Valle HPI: 07/22 10:06 This 53 yrs old Female presents to ER via Wheelchair with complaints of ila SEVERE PAIN FROM RECENT SURGERY (GASTRIC SLEEVE). 10:06 The patient presents with abdominal pain in the upper abdomen, in the lower abdomen, ila abdominal distention in the upper abdomen, in the lower abdomen. Onset: The symptoms/episode began/occurred 3 day(s) ago. The symptoms radiate to the right flank. Associated signs and symptoms: Pertinent positives: anorexia, nausea. The symptoms are described as constant, crampy, dull. Modifying factors: The symptoms are alleviated by nothing, remaining still, the symptoms are aggravated by food, movement, touching the area. Severity of pain: At its worst the pain was moderate severe in the emergency department the pain is unchanged. The patient has experienced similar episodes in the past, several times, but today's symptoms are worse, more painful. Historical: - Allergies: 09:48 Doxycycline; ss 09:48 Morphine; ss 09:48 tramadol; hallucinations; ss - PMHx: 09:48 Enlarged Heart; Hypertension; Kidney stones; leaking heart valve; Obesity; ss - PSHx: 09:48 Lithotripsy; ss - Immunization history:: Adult Immunizations up to date. - Social history:: Smoking status: Patient denies any tobacco usage or history of. - Family history:: not pertinent. ROS: 10:06 Constitutional: Negative for fever, chills, and weight loss, Eyes: Negative for injury, ila pain, redness, and discharge, ENT: Negative for injury, pain, and discharge, Neck: Negative for injury, pain, and swelling, Cardiovascular: Negative for chest pain, palpitations, and edema, Respiratory: Negative for shortness of breath, cough, wheezing, and pleuritic chest pain, Back: Negative for injury and pain, : Negative for injury, bleeding, discharge, and swelling, MS/Extremity: Negative for injury and deformity, Skin: Negative for injury, rash, and discoloration, Neuro: Negative for headache, weakness, numbness, tingling, and seizure, Psych: Negative for depression, anxiety, suicide ideation, homicidal ideation, and hallucinations, Allergy/Immunology: Negative for hives, rash, and allergies, Endocrine: Negative for neck swelling, polydipsia, polyuria, polyphagia, and marked weight changes, Hematologic/Lymphatic: Negative for swollen nodes, abnormal bleeding, and unusual bruising. 10:06 Abdomen/GI: Positive for nausea, abdominal distension. Exam: 10:06 Constitutional: This is a well developed, well nourished patient who is awake, alert, ila and in no acute distress. Head/Face: Normocephalic, atraumatic. Eyes: Pupils equal round and reactive to light, extra-ocular motions intact. Lids and lashes normal. Conjunctiva and sclera are non-icteric and not injected. Cornea within normal limits. Periorbital areas with no swelling, redness, or edema. ENT: Nares patent. No nasal discharge, no septal abnormalities noted. Tympanic membranes are normal and external auditory canals are clear. Oropharynx with no redness, swelling, or masses, exudates, or evidence of obstruction, uvula midline. Mucous membranes moist. Neck: Trachea midline, no thyromegaly or masses palpated, and no cervical lymphadenopathy. Supple, full range of motion without nuchal rigidity, or vertebral point tenderness. No Meningismus. Chest/axilla: Normal chest wall appearance and motion. Nontender with no deformity. No lesions are appreciated. Cardiovascular: Regular rate and rhythm with a normal S1 and S2. No gallops, murmurs, or rubs. Normal PMI, no JVD. No pulse deficits. Respiratory: Lungs have equal breath sounds bilaterally, clear to auscultation and percussion. No rales, rhonchi or wheezes noted. No increased work of breathing, no retractions or nasal flaring. Back: No spinal tenderness. No costovertebral tenderness. Full range of motion. Pelvic Exam: Normal external genitalia. Speculum exam with closed cervical os, no discharge or bleeding noted. Bimanual exam with normal adnexa, no adnexal or cervical motion tenderness. Normal uterus. Female : Normal external genitalia. Skin: Warm, dry with normal turgor. Normal color with no rashes, no lesions, and no evidence of cellulitis. MS/ Extremity: Pulses equal, no cyanosis. Neurovascular intact. Full, normal range of motion. Neuro: Awake and alert, GCS 15, oriented to person, place, time, and situation. Cranial nerves II-XII grossly intact. Motor strength 5/5 in all extremities. Sensory grossly intact. Cerebellar exam normal. Normal gait. Psych: Awake, alert, with orientation to person, place and time. Behavior, mood, and affect are within normal limits. 10:06 Abdomen/GI: Inspection: distension, Bowel sounds: active, Palpation: moderate abdominal tenderness, in the right upper quadrant and right lower quadrant, Liver: no appreciated palpable abnormalities, Hernia: not appreciated. 11:45 ECG was reviewed by the Attending Physician. ila Vital Signs: 09:44 Resp 18; Temp 98.0; Weight 143.79 kg; Height 5 ft. 3 in. (160.02 cm); Pain 10/10; ss 09:48 BP 154 / 70; Pulse 84; Pulse Ox 95% on R/A; ss 10:53 BP 129 / 68; Pulse 90; Resp 16; Pulse Ox 96% ; Pain 5/10; jl7 11:30 BP 125 / 78; Pulse 86; Resp 16 S; Pulse Ox 97% on R/A; jl7 12:30 BP 129 / 64; Pulse 79; Resp 16; Pulse Ox 98% ; jl7 13:00 BP 124 / 64; Pulse 88; Resp 16; Pulse Ox 95% ; sv 13:30 BP 124 / 66; Pulse 90; Resp 16; Pulse Ox 97% ; sv 15:00 BP 131 / 71; Pulse 88; Resp 16; Pulse Ox 95% ; jl7 09:44 Body Mass Index 56.15 (143.79 kg, 160.02 cm) ss MDM: 09:36 Patient medically screened. ila 10:09 Differential diagnosis: bowel obstruction, gastritis, gastroesophageal reflux disease, ila non-specific abd pain, pancreatitis, Peptic Ulcer Disease, Perf. Duodenal Ulcer, Perf. Gastric Ulcer, Ureterolithiasis, urinary tract infection. Data reviewed: vital signs, nurses notes, lab test result(s), EKG, radiologic studies. Data interpreted: classroom monitor: rate is 84 beats/min, rhythm is normal sinus rhythm, Pulse oximetry: on room air is 95 %. Test interpretation: by ED physician or midlevel provider: ECG, plain radiologic studies. Counseling: I had a detailed discussion with the patient and/or guardian regarding: the historical points, exam findings, and any diagnostic results supporting the discharge/admit diagnosis, lab results, radiology results. Medication response: dilaudid. 12:29 ED course: to [facility], no urology here, dw dr johann cho. [facility] 07/22 10:06 Order name: Basic Metabolic Panel; Complete Time: 11:07 [facility] 07/22 10:06 Order name: CBC with Diff; Complete Time: 14:23 [facility] 07/22 10:06 Order name: Hepatic Function; Complete Time: 11:07 [facility] 07/22 10:06 Order name: Lipase; Complete Time: 11:07 [facility] 07/22 10:06 Order name: Urine Culture [facility] 07/22 12:42 Order name: Urine Dipstick--Ancillary (enter results); Complete Time: 12:53 07/22 10:06 Order name: Chest Single View XRAY; Complete Time: 11:49 [facility] 07/22 10:06 Order name: CT Abd/Pelvis - PO and IV Contrast [facility] 07/22 12:47 Order name: Urine --Ancillary (enter results) [facility] 07/22 13:17 Order name: CBC Smear Scan; Complete Time: 14:23 [facility] 07/22 10:06 Order name: IV Saline Lock; Complete Time: 10:51 [facility] 07/22 10:06 Order name: Labs collected and sent; Complete Time: 10:51 [facility] 07/22 10:06 Order name: Urine Dipstick-Ancillary (obtain specimen); Complete Time: 12:42 [facility] 07/22 10:06 Order name: Urine Test (obtain specimen); Complete Time: 12:42 [facility] 07/22 10:11 Order name: EKG; Complete Time: 10:12 [facility] 07/22 10:11 Order name: EKG - Nurse/Tech; Complete Time: 11:42 [facility] 07/22 12:56 Order name: NPO; Complete Time: 14:02 [facility] EC:45 Rate is 76 beats/min. Rhythm is regular. QRS [place] is Normal. OR interval is normal. QRS ila interval is normal. QT interval is normal. No Q waves. T waves are Normal. No ST changes noted. Clinical impression: Normal ECG and No evidence of ischemia. Interpreted by me. Reviewed by me. Administered Medications: 10:40 Drug: NS 0.9% 1000 ml Route: IV; Rate: 1 bolus; Site: left antecubital; jl7 11:40 Follow up: Response: No adverse reaction; IV Status: Completed infusion; IV Intake: jl7 1000ml 10:42 Drug: Zofran (Ondansetron) 4 mg Route: IVP; Site: left antecubital; jl7 11:00 Follow up: Response: No adverse reaction; Nausea is decreased jl7 10:45 Drug: Dilaudid 1 mg Route: IVP; Site: left antecubital; jl7 11:00 Follow up: Response: No adverse reaction; Pain is decreased jl7 12:38 Drug: Rocephin 1 grams Route: IV; Rate: per protocol; Site: left antecubital; jl7 12:41 Follow up: Response: No adverse reaction; IV Status: Completed infusion jl7 12:38 Drug: NS 0.9% 1000 ml Route: IV; Rate: 1 bolus; Site: left antecubital; jl7 13:30 Follow up: Response: No adverse reaction; IV Status: Completed infusion; IV Intake: jl7 1000ml 12:40 Drug: TORadol 30 mg Route: IVP; Site: left antecubital; jl7 13:10 Follow up: Response: No adverse reaction sv 12:43 Drug: Zofran (Ondansetron) 4 mg Route: IVP; Site: left antecubital; jl7 13:10 Follow up: Response: No adverse reaction sv 14:26 Drug: Phenergan 12.5 mg Route: IVP; Site: left antecubital; jl7 14:44 Follow up: Response: No adverse reaction; Nausea is decreased jl7 Disposition: 07/23/19 12:32 Transfer ordered to [facility]. Diagnosis are Hydronephrosis with renal and ureteral calculous obstruction - right 6 mm , severe hydro, Obesity, unspecified. - Reason for transfer: Higher level of care. - Accepting physician is to [facility]. - Condition is Fair. - Problem is new. - Symptoms have improved. Signatures: Dispatcher [employer] EDMS Nelson Argueta MD MD cha Smirch, Shelby, RN RN ss Saman Braun RN RN jl7 Verde, Stephanie RN sv Corrections: (The following items were deleted from the chart) 15:24 12:32 07/23/2019 12:32 Transfer ordered to [facility]. Diagnosis is jl7 Hydronephrosis with renal and ureteral calculous obstruction - right 6 mm , severe hydro; Obesity, unspecified. Reason for transfer: Higher level of care. Accepting physician is to , [facility] [place]. Condition is Fair. Problem is new. Symptoms have improved. ila
== END 2019-07-23 15:24 | disposition short-term general hospital (02) ==
LOC: ER 09:32
DX: N13.2 Hydronephrosis with renal and ureteral calculous obstruction (principal); E66.9 Obesity, unspecified; Z98.84 Bariatric surgery status; I10 Essential (primary) hypertension; Z88.1 Allergy status to other antibiotic agents; Z88.5 Allergy status to narcotic agent
CPT/HCPCS: 93005; 87088; 85025; 87086; 80048; 36415; 81025; 80076; 81003; 83690; 74177; 71045; Q9967; J2550; J1170; J0696; J7030 ×2; J2405 ×2; 87077; 87186; 96361; 96374; 96375; 99285

== ENCOUNTER 2019-08-27 03:45 | Emergency (ER) | payer OTHER ==
--- OUTSIDE RECORDS SUMMARY | 2019-08-27 03:48 | XMS REPORT | Continuity of Care Document ---
:1965 Author Organization [facility] t Address [address] [place] [address] Care Team Providers Name Role Phone NILES [...] malnutriti d it y of on on [place] [facility] Dizziness Dizziness Problem Active Uni vers [facility] [place] [facility] Malnutriti Malnutriti Problem Active U nivers on on [facility] [place] [facility] Allergies, Adverse Reactions, Alerts This patient has no known allergies or adverse reactions. Medications This patient has no known medications. Vital Signs Vital Name Observation Time Observation Value Comments Source Height 2019-01-26 10:48:00 63 [facility] Phys[facility] s Weight 2019-01-26 10:48:00 247.2 [lb_av] Univers ity [facility] Physician s Body Mass Index 2019-01-26 10:48:00 43.79 kg/m2 Unive rsity of Calculated [place] Physician s BP Systolic 2018-08-25 10:11:00 138 mm[Hg] Universi ty [facility] Physician s BP Diastolic 2018-08-25 10:11:00 73 mm[Hg] [facility] Physician s Height 2018-08-25 10:11:00 63 [in_us] [facility] Physician s Weight 2018-08-25 10:11:00 362.2 [lb_av] [facility] [place] [facility] Body Mass Index 2018-08-25 10:11:00 64.16 kg/m2 [facility] Physician s Temperature 2018-08-25 10:11:00 97.7 [degF] [facility] Phys[facility] s Heart Rate 2018-08-25 10:11:00 83 /min [facility] Physician s Procedures Procedure Date / Time Performing Clinician Source Performed [LH] CBC (without 2019-01-26 00:00:00 [facility] differential) Physicians [QL] COMPREHENSIVE 2019-01-26 00:00:00 [facility] METABOLIC PANEL W/O eGFR Physici ans [QLH] FOLATE, SERUM 2019-01-26 00:00:00 [facility] Physicians [QLH] HEMOGLOBIN A1c 2019-01-26 00:00:00 [facility] ity [facility] Physicians [QL] IRON AND TOTAL 2019-01-26 00:00:00 [facility] IRON BINDING CAPACITY Physicians [QL] LIPID PANEL 2019-01-26 00:00:00 [facility] Physicians [QL] PTH, INTACT 2019-01-26 00:00:00 [facility] (WITHOUT CALCIUM) Physicians [QL] TSH, 3RD 2019-01-26 00:00:00 [facility] GENERATION Physicians [QLH] VITAMIN A 2019-01-26 00:00:00 [facility] (RETINOL) Physicians [QL] VITAMIN B1, WHOLE 2019-01-26 00:00:00 [facility] BLOOD Physicians [QL] VITAMIN B12 2019-01-26 00:00:00 [facility] Physicians [QL] VITAMIN D, 2019-01-26 00:00:00 [facility] 25-HYDROXY, LC/MS/MS Physicians [QL] VITAMIN E 2019-01-26 00:00:00 [facility] (TOCOPHEROL) Physicians [LH] CBC (without 2018-08-25 00:00:00 [facility] differential) Physicians [QL] COMPREHENSIVE 2018-08-25 00:00:00 [facility] METABOLIC PANEL W/O eGFR Physici ans [QLH] FOLATE, SERUM 2018-08-25 00:00:00 [facility] Physicians [QLH] HEMOGLOBIN A1c 2018-08-25 00:00:00 [facility] Physicians [QLH] IRON AND TOTAL 2018-08-25 00:00:00 [facility] IRON BINDING CAPACITY Physicians [QLH] LIPID PANEL 2018-08-25 00:00:00 [facility] Physicians [QLH] PTH, INTACT 2018-08-25 00:00:00 [facility] (WITHOUT CALCIUM) Physicians [QL] TSH, 3RD 2018-08-25 00:00:00 [facility] GENERATION Physicians [QLH] VITAMIN A 2018-08-25 00:00:00 [facility] (RETINOL) Physicians [QLH] VITAMIN B1, WHOLE 2018-08-25 00:00:00 [facility] BLOOD Physicians [QLH] VITAMIN B12 2018-08-25 00:00:00 [facility] Physicians [QLH] VITAMIN D, 2018-08-25 00:00:00 [facility] 25-HYDROXY, LC/MS/MS Physicians [[facility]] VITAMIN E 2018-08-25 00:00:00 [facility] (TOCOPHEROL) Physicians US Carotid artery 2018-08-25 00:00:00 [facility] bilateral Duplex [id number] Physician s Plan of Care Planned Activity Planned Date Details Comments Source Future Appointment 2019-09-07 Larisa DUTTA, [facility] 10:15:00 Physicians Encounters Start End Encounter Admission Attending Care Care Encounter Source Date/Time Date/Time Type Type Clinicians Facility Department ID 2019-07-05 Inpatient [facility] MIKE [id number] [facility] 06:42:00 2019-07-23 2019-07-23 Outpatient E [facility] MED [id number] [facility] 16:31:00 16:31:00 2019-07-20 2019-07-20 LEXX Chu [id number] Univers 11:45:00 11:45:00 t; chloe GOODRICH D.O. [place] Re[facility] GOODRICH D.O. ans 2019-07-13 2019-07-13 Emergency E [facility]FB MHFB [id number] [facility]FB 17:45:00 17:45:00 2019-07-05 2019-07-05 LEXX Chu [id number] Univers 08:00:00 08:00:00 t; chloe GOODRICH D.O. [place] Ree GOODRICH D.O. ans 2019-06-29 2019-06-29 LEXX Chu [id number] Univers 10:00:00 10:00:00 t; KP, ity o f Kennedy CAGE.O. [place] KP, Physici D.O. ans 2019-06-05 2019-06-05 Appointclaudette CAGE, LEXX UTP [id number] Univers 10:00:00 10:00:00 t; KP, ity o f Kennedy CAGE.O. [place] KP, Physici D.O. ans 2019-05-04 2019-05-04 Appointclaudette CAGE, LEXX HALLMAN [id number] Univers 09:30:00 09:30:00 t; KP, ity o f Kennedy CAGE.O. [place] KP, Physici D.O. ans 2019-03-22 2019-03-22 Appointclaudette MCGHEE-RACHNA HALLMAN [facility] [id number] Univers 11:00:00 11:00:00 t; JACE Correa [facility], Physi ci RD ans 2019-02-26 2019-02-26 AppointLEXX Tuttle [id number] Univers 13:30:00 13:30:00 t; MORALES GARY ity of CONNIE, [facility] Physici ans 2019-02-26 2019-02-26 Appointclaudette MCGHEE-RACHNA HALLMAN [facility] [id number] Univers 13:00:00 13:00:00 t; JACE Correa ity of WOLIN-RIKL [facility], [facility], Physi ci RD ans 2019-01-26 2019-01-26 LEXX Chu [id number] Univers 11:15:00 11:15:00 t; KP, ity o f Ed CAGEO. [place] KP, Physici D.O. ans 2019-01-26 2019-01-26 Appointclaudette CAGE, LEXX General [id number] Univers 10:15:00 10:15:00 t; KP, Surgery - ity of [place] CAGE. [place] Jareth as KP, Physici D.O. ans 2019-01-11 2019-01-11 Appointclaudette THORNEIN-ROLANI LEXX UTP [id number] Univers 11:00:00 11:00:00 t; JACE Correa ity of [address] [place], JACE, Physi ci RD ans 2018-12-14 2018-12-14 [facility]AL [facility] UTP [id number] Univers 11:00:00 11:00:00 t; JACE Correa ity of [address] [place], JACE, Physi ci RD ans 2018-10-11 2018-10-11 Appointclaudette NILES, LEXX UTP [id number] Univers 08:00:00 08:00:00 t; KP, ity o [place] [facility] ans 2018-10-11 2018-10-11 Outpatient MHFB MIKE [id number] MHFB 06:40:00 06:40:00 2018-09-28 2018-09-28 [facility] UTP [id number] Univers 10:30:00 10:30:00 t; JACE Correa ity of [address] [facility], JACE, Physi ci RD ans 2018-08-25 2018-08-25 Appointclaudette CAGE, [facility] General [id number] Univers 10:00:00 10:00:00 t; KP, Surgery - ity of Daniela CAGE [facility], Medical Physici D.O. Center ans Results Test Description Test Time Test Comments Results Result Comments Source [[facility]] VITAMIN D, 25-HYDROXY, LC/MS/MS 2019-01-26 12:00:01 Test Item Value Reference Range Interpretation Comme nts Vitamin D, 25-OH, Total 48.0 ng/ml 30.0-100.0 Refe rence range is based on (test code = Vitamin D, robert mmendations in the 25-OH, Total) EndocrineSocie ty Clinical Practice Guideline (J Cl in Endocrinol Lewib1881;96:19 11-1930) [facility] Physicians[QL] CMP [id number] 12:00:01 Test Item Value Reference Range Interpretation Comments Sodium Level 139 {mEq/l} 135-145 (test code = 2951-2) Potassium Level 4.5 {mEq/l} 3.5-5.1 (test code = 2823-3) Chloride Level 102 {mEq/l} 95-109 (test code = 2075-0) Carbon Dioxide 31 {mEq/l} 24-32 (test code = 2027-9) AGAP (test code = 10.5 {mEq/l} 10.0-20.0 51724-3) Glucose Lvl (test 84 mg/dl 70-99 Adult refe rence range code = 2345-7) values reflec t the clinical guidel inesof the [place] Diabet es Association. Creatinine Lvl 0.90 mg/dl 0.50-1.40 (test code = 2160-0) Blood Urea 15 mg/dl 7-22 Nitrogen (test code = 3094-0) BUN/Creatinine 17 6-25 Ratio (test code = 3097-3) Total Protein 8.3 g/dl 6.4-8.4 (test code = 2885-2) Albumin Lvl (test 4.1 g/dl 3.5-5.0 code = 1751-7) Globulin (test 4.2 g/dl 2.7-4.2 code = 38099-6) A/G Ratio (test 1.0 0.7-1.6 code = 1759-0) Calcium Level 9.5 mg/dl 8.5-10.5 Total (test code = 69927-9) ALT (test code = 38 u/l 0-65 1743-4) AST (test code = 20 u/l 0-37 89764-8) Bili Total (test 0.5 mg/dl 0.2-1.3 code = 1975-2) Alk Phos (test 98 u/l 39-136 The pediatric reference code = 1783-0) ranges for th is test represent a CLSI-basedtrans ference of the CALIPER muriel abase of pediatric refer ence intervals to eSiemens Stratton analyzer (Clinical Biochemistry 46 (2013): 4799-9831). [facility] has not internally validated these reference ranges and therefore they should be used only in th e context of a thoroughcl inical assessment. eGFR (test code = 73 The eGFR i s calculated 84887-3) {ML/MIN/1.7} using the CKD-E PI formula. In [...] National Kidney Disease Education Progr am(NKDEP) which kellee rios recommends that when the eGFR is used in patientswith ex tremes of body mass index for purposes of eugenia g dosing, the eGFR should be multiplied by t he estimated BMI. [facility] Physicians[[facility]] IRON AND TOTAL IRON BINDING CAPACITY 2019-01-26 12:00:01 Test Item Value Reference Range Interpretation Comments Iron (test code = 2498-4) 82 ug/dL 30-160 % Satur Fe (test code = 2502-3) 20 % 12-57 TIBC (test code = 2500-7) 407 ug/dL 228-428 UIBC (test code = UIBC) 325 ug/dL 110-370 [facility]] LIPID [id number] 12:00:01 Test Item Value Reference Range Interpretation Comments Chol; Above High Threshold (test 214 mg/dl <=199 code = 2093-3) Trig; Above High Threshold (test 187 mg/dl <=149 code = 2571-8) HDL Cholesterol; Below Low 48 mg/dl >=61 Threshold (test code = 2085-9) CHD Risk (test code = 77117-6) 4.46 3.90-5.80 LDL; Above High Threshold (test 129 mg/dl <=99 code = 50811-1) VLDL (test code = VLDL) 37 [facility]] TSH, 3RD [id number] 12:00:01 Test Item Value Reference Range Interpretation Comments TSH (test code = 10709-3) 1.160 {uIU/ml} 0.360-3.740 [facility]] VITAMIN [id number] 12:00:01 Test Item Value Reference Range Interpretation Comments Vitamin B12 Level; Above High 1399 pg/ml 254-1320 Threshold (test code = 2132-9) [facility]] FOLATE, [id number] 12:00:01 Test Item Value Reference Range Interpretation Comments Folate Level (test code = 2284-8) 22.3 ng/ml >=3.0 [facility] Physicians[] CBC (without differential)2019-01-26 12:00:01 Test Item Value Reference Range Interpretation Comments WBC (test code = 6690-2) 8.1 {K/CMM} 3.7-10.4 RBC (test code = 789-8) 4.62 {M/CMM} 4.20-5.40 Hgb (test code = 718-7) 14.7 g/dl 12.0-16.0 Hct (test code = 75836-5) 43.4 % 36.0-48.0 MCV (test code = 787-2) 94.0 fL 80.0-98.0 MCH; Above High Threshold (test 31.8 pg 27.0-31.0 code = 785-6) MCHC (test code = 786-4) 33.8 g/dl 32.0-36.0 RDW (test code = 788-0) 14.4 % 11.5-14.5 Platelet (test code = 44227-9) 339 {K/CMM} 133-450 Mean Platelet Volume (test code 10.2 fL 7.4-10.4 = 78530-6) [facility]] PTH, INTACT (WITHOUT CALCIUM)2019-01-26 12:00:01 Test Item Value Reference Range Interpretation Comments Parathyroid Hormone Intact (test 40.1 pg/ml 18.4-80.1 code = 2731-8) [facility]] HEMOGLOBIN [id number] 12:00:01 Test Item Value Reference Range Interpretation Comments Hemoglobin A1c; Above High Threshold 5.8 % <=5.6 (test code = 4548-4) [facility] Physicians[[facility]] VITAMIN B1, WHOLE [id number] 12:00:01 Test Item Value Reference Range Interpretation Comments Vitamin B1 104.9 66.5-200.0 This test was d eveloped and its Level (test nmol/L performance code = characteristics determined by Vitamin B1 [facility]. It has not been Level) cleared orappro margarita by the Food and Drug Administration. Performed At: [facility] [id number] ra Ines LUDWIG Ph:[phone] [facility] Physicians[H] Vit [id number] 12:00:01 Test Item Value Reference Range Interpretation [...] the Food and Drug Administration. Performed At: [facility] [id number] Chacon MD Ph:[phone] [facility] Physicians[H] Vitamin E [id number] 12:00:01 Test Item Value Reference Range Interpretation Comments Alpha-Tocoph 15.9 mg/L 7.0-25.1 This test was d eveloped and its dean (test performance code = characteristics determined by Alpha-Tocoph [facility]. It has not been cleared dean) orapproved by [facility] Food and Drug Administration. Gamma-Tocoph 2.1 mg/L 0.5-5.5 This test was d eveloped and its dean (test performance code = characteristics determined by Gamma-Tocoph [facility]. It has not been cleared dean) orapproved by t Food and Drug Administration. Reference intervals for a lpha and gamma-tocophero ldetermined from National Health and Nutrition ExaminationSurv ey, 6874-3249. Individuals wit h alpha-tocophero l levelsless than 5.0 mg/L are co nsidered vitamin E deficient.Per formed At: [facility] [id number] Chacon MD Ph:[phone] [facility] Physicians
--- OUTSIDE RECORDS SUMMARY | 2019-08-27 03:49 | XMS REPORT | Summary of Care ---
:1965 Author Name Guzman Address Unavailable Unavailable , Care Team Providers Name Role Phone RUBEN LUDWIG Unavailable Unavailable COLTON AZEVEDO [place] Unavailable Unavailable MARY ANN LUDWIG Unavailable Unavailable NILES VAZQUEZ Unavailable Unavailable BLAKE LUDWIG Unavailable Unavailable Unavailable Unavailable Unavailable Functional Status [...] Planned Goals not documented Planned Encounters Appointment; LUZMARIA LOZANO M.D. On: 07-Sep-2019 10:15 Instructions Name Dates Details Instructions not documented [...] Encounter Diagnosis: Problem not documented Appointment; MORALES GARY APRN On: 26-Feb-2019 13:30 Encounter Diagnosis: Problem [...] not documented Appointment; KP CAGE D.O. On: 20-Jul-2019 1 1:45 Encounter Diagnosis: Problem not documented
[2019-08-27] MEDS ORDERED: HYDROMORPHONE HCL 1 MG/ML INJ ONE (04:17)
[2019-08-27] MEDS ORDERED: TAMSULOSIN 0.4 MG SR CAP ONE (04:18)
[2019-08-27] MEDS ORDERED: ONDANSETRON 4 MG/2 ML VIAL ONE (04:18)
[2019-08-27] MEDS ORDERED: MAGNESIUM SULFATE 1 gm IVPB 1 GM/100 ML BAG IV ONE (04:18)
[2019-08-27 04:25] LABS: Absolute Lymphocytes (CBC) 0.9 K/uL (0.7-4.9); Hematocrit 41.3 % (36.0-45.0); Lymphocytes % 12.9 % (15.3-44.8); MPV 12.6 fL (7.6-11.3); RBC Red Blood Cell Count 4.52 M/uL (3.86-4.86)
[2019-08-27 04:33] LABS: Potassium 3.7 mmol/L (3.5-5.1)
[2019-08-27] MEDS ORDERED: PROMETHAZINE INJ 25 MG/ML AMP ONE (05:43)
--- NOTE | 2019-08-27 06:25 | ER ---
Nurse's Notes 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 04:00 Method Of Arrival: Wheelchair lp1 04:00 Coronavirus screen: Proceed with normal triage. Ebola Screen: No symptoms or risks lp1 identified at this time. Initial Sepsis Screen: Does the patient meet any 2 criteria? No. Patient's initial sepsis screen is negative. Does the patient have a suspected source of infection? No. Patient's initial sepsis screen is negative. Risk Assessment: Do you want to hurt yourself or someone else? Patient reports no desire to harm self or others. Onset of symptoms was August 26, 2019 at 22:00. 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 - Social history:: Smoking status: Patient denies any tobacco usage or history of. - Family history:: not pertinent. - Hospitalizations: : Patient was recently seen at. Screenin:24 Abuse screen: Denies threats or abuse. Denies injuries from another. Nutritional lp1 screening: No deficits noted. Tuberculosis screening: No symptoms or risk factors identified. Fall Risk None identified. Assessment: 04:00 General: Appears uncomfortable, Behavior is appropriate for age, restless. Pain: lp1 Complains of pain in left lower quadrant Pain radiates to left low back Pain currently is 10 out of 10 on a pain scale. Quality of pain is described as sharp. Neuro: Level of Consciousness is awake, alert, obeys commands. Cardiovascular: Patient's skin is warm and dry. Respiratory: Respiratory effort is even, unlabored. GI: Pt is actively vomiting bile. : No signs and/or symptoms were reported regarding the genitourinary system. EENT: No signs and/or symptoms were reported regarding the EENT system. Derm: Skin is intact, Skin is dry, Skin is normal. Musculoskeletal: No deficits noted. 04:54 Reassessment: Patient appears calm at this time; nausea and pain relief. Pain: Pain lp1 currently is 2 out of 10 on a pain scale. 05:15 Reassessment: Patient at 88% on RA while sleeping; 92% when awake, states feeling lp1 drowsy; NC placed on patient at 2L, 95%. 05:30 Reassessment: Patient states nausea when she moves her head, Provider notified. lp1 06:30 Reassessment: Patient given ice chips at this time; continues to have eyes closed, no lp1 apparent distress. 06:51 Reassessment: Assisted patient to bathroom via WC. lp1 06:58 Reassessment: Patient given discharge instruction; waiting for ride home. lp1 07:00 Reassessment: RECD REPORT FROM CARLOS SANDOVAL. 54YO WF P/W BACK PAIN, DX WITH bp NEPHROLITHIASIS. TRANSPORT HOME EN ROUTE. 07:28 Reassessment: PT D/C HOME VIA W/C WITH FAMILY, DX WITH KIDNEY STONE. bp Vital Signs: 04:00 BP 153 / 84; Pulse 78; Resp 18; Temp 98(TE); Pulse Ox 98% on R/A; Weight 139.25 kg (R); lp1 Height 5 ft. 3 in. (160.02 cm); Pain 10/10; 04:54 Pain 2/10; lp1 05:30 BP 144 / 83; Pulse 73; Resp 20; Pulse Ox 96% on 1.5 lpm NC; lp1 06:15 BP 156 / 87; Pulse 73; Resp 18; Pulse Ox 100% on 2 lpm NC; lp1 06:58 Pulse 73; Resp 18; Pulse Ox 98% on R/A; lp1 04:00 Body Mass Index 54.38 (139.25 kg, 160.02 cm) lp1 ED Course: 03:48 Patient arrived in ED. ag3 03:51 Kj Paige MD is Attending Physician. rn 04:00 Inserted saline lock: 22 gauge in right hand, using aseptic technique. Blood collected. lp1 04:00 Arm band placed on left wrist. lp1 04:00 Patient has correct armband on for positive identification. Bed in low position. Call lp1 light in reach. Pulse ox on. NIBP on. 04:19 Carlos Will RN is Primary Nurse. lp1 04:22 Triage completed. lp1 04:39 CT Stone Protocol In Process Unspecified. EDMS 05:44 No provider procedures requiring assistance completed. lp1 06:50 IV discontinued, No redness/swelling at site. Pressure dressing applied. lp1 Administered Medications: 04:10 Drug: Dilaudid 1 mg {Note: RASS 1.} Route: IVP; Site: right hand; lp1 04:54 Follow up: Response: Marked relief of symptoms; Pain is decreased lp1 04:10 Drug: Zofran (Ondansetron) 4 mg Route: IVP; Site: right hand; lp1 04:54 Follow up: Response: Marked relief of symptoms; Nausea is decreased lp1 04:35 Drug: Magnesium Sulfate 1 grams Route: IVPB; Infused Over: 1 hrs; Site: right hand; lp1 05:44 Follow up: IV Status: Completed infusion; IV Intake: 100ml lp1 04:53 Not Given (Patient states she cannot take capsules due to recent gastric sleeve): lp1 Flomax 0.4 mg PO once 05:35 Drug: Phenergan 12.5 mg Route: IVP; Site: right hand; lp1 06:22 Follow up: Response: Nausea is decreased lp1 Intake: 05:44 IV: 100ml; Total: 100ml. lp1 Outcome: 06:24 Discharge ordered by . rn 06:57 Condition: good lp1 06:57 Discharge instructions given to patient, Instructed on discharge instructions, follow up and referral plans. medication usage, Demonstrated understanding of instructions, follow-up care, medications, Prescriptions given X 1. 06:59 Discharged to home via wheelchair, with family. lp1 07:29 Patient left the ED. bp Signatures: Dispatcher [employer] EDMS Kj Paige MD MD rn Carlos Will RN RN lp1 Kev Blancas RN RN bp Tapan, Marcela ag3
--- NOTE | 2019-08-27 06:26 | EDPHYS ---
Physician Documentation [facility] Name: Anahy Irvin Age: 54 yrs Sex: Female : 1965 Arrival Date: 08/27/2019 Time: 03:48 Bed 19 Private MD: ED Physician Kj Paige HPI: 08/26 04:39 This 54 yrs old Female presents to ER via Wheelchair with complaints of Back rn Pain. 04:39 The patient presents with pain that is acute. The symptoms are located in the low back. rn Onset: The symptoms/episode began/occurred last night. The pain radiates to the abdomen. Associated signs and symptoms: Pertinent positives: abdominal pain, dysuria, Pertinent negatives: fever, incontinence, nausea, numbness, tingling. Modifying factors: The patient symptoms are alleviated by nothing, the patient symptoms are aggravated by nothing. Severity of symptoms: At their worst the symptoms were moderate, in the emergency department the symptoms are unchanged. The patient has experienced similar episodes in the past. The patient has been recently seen by a physician:. Reports left flank/abd pain, similar to previous kidney stones, "has had hundreds", diagnosed with right sided stone this last month, required transfer for urology and "blasted with stent". No trauma. No fever. . 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 - Social history:: Smoking status: Patient denies any tobacco usage or history of. - Family history:: not pertinent. - Hospitalizations: : Patient was recently seen at. ROS: 04:39 Constitutional: Negative for fever, chills, and weight loss, Eyes: Negative for injury, rn pain, redness, and discharge, Cardiovascular: Negative for chest pain, palpitations, and edema, Respiratory: Negative for shortness of breath, cough, wheezing, and pleuritic chest pain, Abdomen/GI: Negative for diarrhea, and constipation, Back: Negative for injury : Negative for injury, bleeding, discharge, and swelling, MS/Extremity: Negative for injury and deformity, Skin: Negative for injury, rash, and discoloration, Neuro: Negative for headache, weakness, numbness, tingling, and seizure. Exam: 04:39 Constitutional: Overweight female, appears uncomfortable Cardiovascular: Regular rate rn and rhythm. No pulse deficits. Respiratory: No increased work of breathing, no retractions or nasal flaring. Abdomen/GI: Mild LLQ tenderness, no rebound Back: No spinal tenderness. Skin: Warm, dry MS/ Extremity: Pulses equal, no cyanosis. Neuro: Awake and alert, GCS 15 Vital Signs: 04:00 BP 153 / 84; Pulse 78; Resp 18; Temp 98(TE); Pulse Ox 98% on R/A; Weight 139.25 kg (R); lp1 Height 5 ft. 3 in. (160.02 cm); Pain 10/10; 04:54 Pain 2/10; lp1 05:30 BP 144 / 83; Pulse 73; Resp 20; Pulse Ox 96% on 1.5 lpm NC; lp1 06:15 BP 156 / 87; Pulse 73; Resp 18; Pulse Ox 100% on 2 lpm NC; lp1 06:58 Pulse 73; Resp 18; Pulse Ox 98% on R/A; lp1 04:00 Body Mass Index 54.38 (139.25 kg, 160.02 cm) lp1 MDM: 03:51 Patient medically screened. rn 06:20 Differential diagnosis: Ureterolithiasis. Data reviewed: vital signs, nurses notes, rn radiologic studies, CT scan, and as a result, I will discharge patient. Counseling: I had a detailed discussion with the patient and/or guardian regarding: the historical points, exam findings, and any diagnostic results supporting the discharge/admit diagnosis, radiology results, the need for outpatient follow up, to return to the emergency department if symptoms worsen or persist or if there are any questions or concerns that arise at home. Response to treatment: the patient's symptoms have markedly improved after treatment, and as a result, I will discharge patient. Special discussion: Based on the patient's history, exam and DX evaluation, there is no indication for emergent intervention or inpatient TX. It is understood by the patient/guardian that if the SXs persist or worsen they need to return immediately for re-evaluation. I discussed with the patient/guardian in detail that at this point there is no indication for admission to the hospital. It is understood, however, that if the symptoms persist or worsen the patient needs to return immediately for re-evaluation. ED course: Pt sleeping comfortably, when wakes up to voice, reports pain "down to a twinge". Will dc home with conservative management to pass stone at home as she has done numerous times in past. Will dc home with prn zofran. . 08/26 03:57 Order name: CBC with Diff; Complete Time: 05:32 rn 08/26 03:57 Order name: Basic Metabolic Panel; Complete Time: 05:32 rn 08/26 03:57 Order name: CT Stone Protocol rn 08/26 03:57 Order name: IV Start; Complete Time: 04:20 rn Administered Medications: 04:10 Drug: Dilaudid 1 mg {Note: RASS 1.} Route: IVP; Site: right hand; lp1 04:54 Follow up: Response: Marked relief of symptoms; Pain is decreased lp1 04:10 Drug: Zofran (Ondansetron) 4 mg Route: IVP; Site: right hand; lp1 04:54 Follow up: Response: Marked relief of symptoms; Nausea is decreased lp1 04:35 Drug: Magnesium Sulfate 1 grams Route: IVPB; Infused Over: 1 hrs; Site: right hand; lp1 05:44 Follow up: IV Status: Completed infusion; IV Intake: 100ml lp1 04:53 Not Given (Patient states she cannot take capsules due to recent gastric sleeve): lp1 Flomax 0.4 mg PO once 05:35 Drug: Phenergan 12.5 mg Route: IVP; Site: right hand; lp1 06:22 Follow up: Response: Nausea is decreased lp1 Disposition: 08/27/19 06:24 Discharged to Home. Impression: Hydronephrosis with renal and ureteral calculous obstruction. - Condition is Stable. - Discharge Instructions: Kidney Stones. - Prescriptions for Zofran ODT 4 mg Oral tablet,disintegrating - place 1 tablet by TRANSLINGUAL route every 8 hours As needed; 15 tablet. - Medication Reconciliation Form, Thank You Letter, Antibiotic Education, Prescription Opioid Use form. - Follow up: Private Physician; When: As needed; Reason: Recheck today's complaints, Re-evaluation by your physician. - Problem is new. - Symptoms have improved. Signatures: Dispatcher [employer] EDKj Fernández MD MD rn Divina Will RN RN lp1 Kev Blancas RN RN bp Corrections: (The following items were deleted from the chart) 07:29 06:24 08/27/2019 06:24 Discharged to Home. Impression: Hydronephrosis with renal and bp ureteral calculous obstruction. Condition is Stable. Forms are Medication Reconciliation Form, Thank You Letter, Antibiotic Education, Prescription Opioid Use. Follow up: Private Physician; When: As needed; Reason: Recheck today's complaints, Re-evaluation by your physician. Problem is new. Symptoms have improved. rn
[2019-08-27 07:47] VITALS: TEMP 98
[2019-08-27 07:50] VITALS: BP 156/87
[2019-08-27 07:51] VITALS: O2SAT 98
--- NOTE | 2019-08-27 12:33 | RAD REPORT ---
EXAM DESCRIPTION: CT Abdomen and Pelvis Without Intravenous Contrast CLINICAL HISTORY: The patient is 54 years old and is Female; left flank pain TECHNIQUE: Axial computed tomography images of the abdomen and pelvis without intravenous contrast. Sagittal and coronal reformatted images were created and reviewed. This CT exam was performed usi ng one or more of the following dose reduction techniques: automated exposure control, adjustment o f the mA and/or kV according to patient size, and/or use of iterative reconstruction technique. COMPARISON: No relevant prior studies available. FINDINGS: LUNG BASES: Unremarkable. No mass. No consolidation. MEDIASTINUM: A small hiatal hernia is present. ABDOMEN: LIVER: The liver is mildly fatty. GALLBLADDER AND BILE DUCTS: Surgical clips are present in the right upper quadrant, consistent w ith previous cholecystectomy. PANCREAS: The pancreas is atrophic. No ductal dilation. SPLEEN: Unremarkable. ADRENALS: Unremarkable. No mass. KIDNEYS AND URETERS: Moderate left hydroureteronephrosis is present secondary to a 0.7 cm distal left ureteral calculus. Edema of the left kidney is noted. Mild nonspecific perinephric and periur eteral stranding is present. Punctate left intrarenal calcification is present. Punctate right intr arenal calcifications are present. STOMACH AND BOWEL: Evidence of a gastric sleeve is noted. The small bowel is normal in caliber . Stool is present throughout the colon. There is no mucosal thickening or evidence of bowel obstruct ion. PELVIS: APPENDIX: The appendix is normal in caliber without surrounding inflammation. BLADDER: The bladder is nearly empty. No stones. REPRODUCTIVE: The patient is status post hysterectomy. ABDOMEN and PELVIS: INTRAPERITONEAL SPACE: Unremarkable. No free air. No significant fluid collection. BONES/JOINTS: No acute fracture. SOFT TISSUES: The soft tissues are normal. VASCULATURE: Unremarkable. No abdominal aortic aneurysm. LYMPH NODES: Unremarkable. No enlarged lymph nodes. IMPRESSION: 1. Moderate left hydroureteronephrosis is present secondary to a 0.7 cm distal left ur eteral calculus. 2. Punctate bilateral nephrolithiasis. Electronically signed by: Alannah Lange MD 08/27/2019 4:54 AM CDT Due to temporary technical issues with the PACS/Fluency reporting system, reports are being signed by the in house radiologist without review as a courtesy to ensure prompt reporting. The interpreting r adiologist is fully responsible for the content of the report.
== END 2019-08-27 07:29 | disposition home or self-care (01) ==
LOC: ER 03:45
DX: N13.2 Hydronephrosis with renal and ureteral calculous obstruction (principal); I10 Essential (primary) hypertension; Z88.1 Allergy status to other antibiotic agents; Z88.5 Allergy status to narcotic agent
CPT/HCPCS: 96365; 85025; 80048; 36415; 76377; 74176; 96375; 99284; J2550; J3475; J1170; J2405

== ENCOUNTER 2021-08-05 11:17 | Emergency (ER) | payer OTHER ==
--- OUTSIDE RECORDS SUMMARY | 2021-08-05 11:23 | XMS REPORT | Continuity of Care Document ---
:1965 Author Organization [facility] t Address [address] [place] [address] Care Team Providers Name Role Phone Tomy Gold Primary Care Physician LAKISHA Attending Clinician Unavailable SANTI Attending Clinician Unavailable [place] Bob Attending Clinician Doctor Unassigned, Abdi Attending Clinician Unavailable LAKISHA Attending Clinician Unavailable Fuentes Gutierrez MD Attending Clinician RAFI WILSON Attending Clinician Unavailable Judy MEADE Attending Clinician Unavailable FLORINDA BANUELOS Attending Clinician Unavailable COLTON Attending Clinician Unavailable ABDIRAHMAN Attending Clinician Unavailable RAFI WILSON Admitting Clinician Unavailable FLORINDA BANUELOS Admitting Clinician Unavailable Payers Payer Name Policy Type Policy Number Effective Date Expiration Date S jose alberto AENNAMDI [facility] C[facility] [id number] 2018 00:00:00 Problems Condition Condition Condition Status Onset Resolution Last Treating Co mments Source Name Details Category Date Date Treatment Clinician Date S/P S/P Disease Active [facility] laparoscop laparoscop 11-05 He alth ic sleeve ic sleeve 00:00: gastrectom gastrectom 00 y y Gastro-eso Gastro-eso Disease Active U T phageal phageal 10-30 Health reflux reflux 00:00: disease disease 00 without without esophagiti esophagiti s s Chronic Chronic Disease Active UT upper back upper back 10-30 He alth pain pain 00:00: 00 Closed Closed Disease Active [facility] fracture fracture 10-30 Health of of 00:00: alveolar alveolar 00 ridge of ridge of maxilla maxilla Concussion Concussion Disease Active U T wth loss wth loss 10-30 Health of of 00:00: consciousn consciousn 00 ess of 30 ess of 30 minutes or minutes or less less Contusion Contusion Disease Active UT of right of right 10-30 Health chest wall chest wall 00:00: 00 Contusion Contusion Disease Active UT of right of right 10-30 Health knee knee 00:00: 00 Episode of Episode of Disease Active U T generalize generalize 10-30 He alth d weakness d weakness 00:00: 00 Other Other Disease Active UT fatigue fatigue 10-30 Health 00:00: 00 History of History of Disease Active U T 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 pt has not had a sleep study Cellulitis Cellulitis Disease Active U T 6-13 Health 00:00: 00 ROSALINDA ROSALINDA Disease Active UT (stress (stress 05 Health urinary urinary 00:00: incontinen incontinen 00 ce, ce, female) female) Urinary Urinary Disease Active UT incontinen incontinen 3-05 He alth ce ce 00:00: 00 Malnutriti Malnutriti Disease Active 2019-02 U T on on 04 Health 00:00: 00 Vitamin D Vitamin D Disease Active 2019-02 UT deficiency deficiency 204 He alth 00:00: 00 Morbid Morbid Disease Active UT obesity obesity 8-18 Health with BMI with BMI 00:00: of of 00 40.0-44.9, 40.0-44.9, adult adult Malabsorpt Malabsorpt Disease Active 2018-02 U T ion due to ion due to 2-06 He alth intoleranc intoleranc 00:00: e, not e, not 00 elsewhere elsewhere classified classified Chest pain Chest pain Disease Active U T with high with high 9-17 Heal th risk for risk for 00:00: cardiac cardiac 00 etiology etiology Lymphedema Lymphedema Disease Active U T in adult in adult 9-17 Health patient patient 00:00: 00 Fall Fall Disease Active 2010-02 UT 0-25 Health 00:00: 00 Malabsorpt Malabsorpt Problem Active U T ion due to ion due to Ph ysici intoleranc intoleranc an s e, not e, not elsewhere elsewhere classified classified History of History of Problem Resolve UT vitamin D vitamin D d Phys ici deficiency deficiency an s Dizziness Dizziness Problem Active UT Physici ans Malnutriti Malnutriti Problem Active U T on on Physici ans Vitamin D Vitamin D Problem Active UT deficiency deficiency Ph ysici ans Morbidly Morbidly Problem Active UT obese obese Physici ans Malabsorpt Malabsorpt Problem Active U T ion ion Physici ans Urinary Urinary Problem Active UT incontinen incontinen Ph ysici ce ce ans Hypertensi Hypertensi Disease Active U T on on Health Hyperchole Hyperchole Disease Active U T steremia steremia Health Lymphedema Lymphedema Disease Active U T of both of both Health lower lower extremitie extremitie s s Prediabete Prediabete Disease Active U T s s Health DAQUAN DAQUAN Disease Active UT (obstructi (obstructi He alth ve sleep ve sleep apnea) apnea) Osteoarthr Osteoarthr Disease [facility] Mitral Mitral Disease Active Overview: [facility] valve valve [facility] insufficie insufficie g of this ncy ncy note might be different from the original. Prior to sleeve gastrecto my in 06/2019, had dyspnea on exertion, no formal diagnosis of congestiv e heart failure. Symptom improved with weight loss Nephrolith Nephrolith Disease Active U T iasis iasis Health Sciatica Sciatica Disease Active [facility] Depression Depression Disease Active U T Health Allergies, Adverse Reactions, Alerts Allergy Allergy Status Severity Reaction(s) Onset Inactive Treating Comm ents Source Name Type Date Date Clinician Hydrocod Propensi Active Hallucinatio UT one ty to ns 03-09 Health adverse 00:00: reaction 00 s Naltrexo Propensi Active Other Disequili [facility] ne ty to 1-17 [facility] adverse 00:00: nausea reaction 00 s Tramadol Allergy Active UT to 6-13 Health substanc 00:00: e 00 Morphine Propensi Active UT ty to 6-08 Health adverse 00:00: reaction 00 s HYDROMOR DRUG Active N/V 2015- [facility] PHONE [facility] of (BULK) 00:[facility]: [place] [facility] MORPHINE DRUG Active Hives 2004-02 [facility] INGREDI 2-10 ity of 00:00: [place] [facility] Doxycycl Allergy Active Rash 2004-02 UT ine to 2-10 Health substanc 00:00: e 00 DOXYCYCL DRUG Active 2004- [facility] INE INGREDI 2-10 ity of 00:00: [place] [facility] Social History Social Habit Start Date Stop Date Quantity Comments Source History SDOH Alcohol [facility] Std Drinks History SDVA Alcohol [facility] Comment Exposure to Not sure [facility] SARS-CoV-2 (event) Alcohol intake 2021-07-20 2021-07-20 Lifetime [facility] 00:00:00 00:00:00 non-drinker (finding) History SDOH Alcohol 2021-02-25 2021-02-25 1 [facility] Frequency 00:00:00 00:00:00 History SDOH Alcohol 2021-02-25 2021-02-25 1 [facility] Binge 00:00:00 00:00:00 History SDOH Social 2021-02-25 2021-02-25 5 [facility] Phone 00:00:00 00:00:00 History SDOH Social 2021-02-25 2021-02-25 2 [facility] Get 00:00:00 00:00:00 Together History SDOH Social 2021-02-25 2021-02-25 1 [facility] Advent 00:00:00 00:00:00 History SDOH Social 2021-02-25 2021-02-25 2 [facility] 00:00:00 00:00:00 Membership History SDOH Social 2021-02-25 2021-02-25 1 [facility] Meetings 00:00:00 00:00:00 History SDOH Social 2021-02-25 2021-02-25 5 [facility] Living 00:00:00 00:00:00 History SDOH Physical 2021-02-25 2021-02-25 3 [facility] Activity DPW 00:00:00 00:00:00 History SDOH Physical 2021-02-25 2021-02-25 3 [facility] Activity MPS 00:00:00 00:00:00 History SDOH Stress 2021-02-25 2021-02-25 3 UT [facility] alth 00:00:00 00:00:00 History SDOH 2021-02-25 2021-02-25 4 [facility] Financial 00:00:00 00:00:00 History SDOH Food 2021-02-25 2021-02-25 2 [facility] Worry 00:00:00 00:00:00 History SDOH Food 2021-02-25 2021-02-25 2 [facility] Scarcity 00:00:00 00:00:00 History SDOH 2021-02-25 2021-02-25 2 [facility] Transport Med 00:00:00 00:00:00 History SDOH 2021-02-25 2021-02-25 2 [facility] Transport Non-Med 00:00:00 00:00:00 History SDOH Housing 2021-02-25 2021-02-25 2 [facility] Unable to Pay 00:00:00 00:00:00 History SDOH Housing 2021-02-25 2021-02-25 1 [facility] Places Lived 00:00:00 00:00:00 History SDOH Housing 2021-02-25 2021-02-25 2 [facility] Homeless Last Year 00:00:00 00:00:00 Tobacco use and 2020-07-29 2020-07-29 Smokeless tobacco [facility] exposure 00:00:00 00:00:00 non-user Sex Assigned At [birth year] [facility] 00:[facility] 00:00:00 Smoking Status Start Date Stop Date Source Never smoked tobacco [facility] Medications Ordered Filled Start Stop Current Ordering Indication Dosage Frequency Signature Comments Components Source Medication Medication Date Date Medication? Clinician (SIG) Name Name Cholecalcif Yes Take by UT dustin 5-27 mouth. Health (Vitamin D) 10:40: 10 MCG/ML 27 liquid Multiple Yes Take by [facility] 5-27 [facility]. [facility] nerals 10:40: (Multivitam 27 in) liquid Vitamin A 2022-0 Yes 8000U QD Take 8,000 U T 2400 MCG 5-27 Units by Health (8000 UT) 10:40: mouth 1 capsule 27 (one) time each day. cyanocobala 2022-0 Yes 100ug QD Take 100 U T min 5-27 mcg by Health (Vitamin 10:40: mouth 1 B-12) 100 27 (one) time MCG tablet each day. Cholecalcif 2022-0 Yes Take by [facility] dustin 3-30 mouth. Health (Vitamin D) 15:15: 10 MCG/ML 34 liquid Multiple 2021-0 Yes Take by [facility] 3-30 mouth. Health nerals 15:15: (Multivitam 34 in) liquid Vitamin A 2022-0 Yes 8000U QD Take 8,000 U T 2400 MCG 3-30 Units by [facility] (8000 UT) 15:15: mouth 1 capsule 34 (one) time each day. cyanocobala 2022-0 Yes 100ug QD Take 100 U T min 3-30 mcg by [facility] (Vitamin 15:15: mouth 1 B-12) 100 34 (one) time MCG tablet each day. Cholecalcif 2022-0 Yes Take by [facility] dustin 1-03 mouth. Health (Vitamin D) 12:43: 10 MCG/ML 43 liquid Multiple 2021-0 Yes Take by [facility] 1-03 mouth. Health nerals 12:43: (Multivitam 43 in) liquid Vitamin A 2022-0 Yes 8000U QD Take 8,000 U T 2400 MCG 1-03 Units by Health (8000 UT) 12:43: mouth 1 capsule 43 (one) time each day. cyanocobala 2022-0 Yes 100ug QD Take 100 U T min 1-03 mcg by Health (Vitamin 12:43: mouth 1 B-12) 100 43 (one) time MCG tablet each day. Cholecalcif 2022-0 Yes Take by [facility] dustin 1-03 mouth. Health (Vitamin D) 12:43: 10 MCG/ML 43 liquid Multiple 2022-0 Yes Take by [facility] 1-03 mouth. Health nerals 12:43: (Multivitam 43 in) liquid Vitamin A 2022-0 Yes 8000U QD Take 8,000 U T 2400 MCG 1-03 Units by Health (8000 UT) 12:43: mouth 1 capsule 43 (one) time each day. cyanocobala Yes 100ug QD Take 100 U T min 1-03 mcg by Health (Vitamin 12:43: mouth 1 B-12) 100 43 (one) time MCG tablet each day. buPROPion 2022- No [id number] 300mg QD Take 1 UT XL 02-23 tablet Health (Wellbutrin 00:00: 05:59 (300 mg XL) 300 MG 00 :00 total) by 24 hr mouth 1 tablet (one) time each day. Do not crush, chew, or split. naltrexone 2022- No [id number] 25mg QD Take 0.5 UT (Depade) 50 02-23 tablets Heal th MG tablet 00:00: 05:59 (25 mg 00 :00 total) by mouth 1 (one) time each day. buPROPion 2022- No [id number] 300mg QD Take 1 UT XL 02-23 tablet Health (Wellbutrin 00:00: 05:59 (300 mg XL) 300 MG 00 :00 total) by 24 hr mouth 1 tablet (one) time each day. Do not crush, chew, or split. buPROPion 2022- No [id number] 300mg QD Take 1 UT XL 02-23 tablet Health (Wellbutrin 00:00: 05:59 (300 mg XL) 300 MG 00 :00 total) by 24 hr mouth 1 tablet (one) time each day. Do not crush, chew, or split. buPROPion 2022- No [id number] 300mg QD Take 1 UT XL 02-23 tablet Health (Wellbutrin 00:00: 05:59 (300 mg XL) 300 MG 00 :00 total) by 24 hr mouth 1 tablet (one) time each day. Do not crush, chew, or split. naltrexone 2021- No [id number] 25mg QD Take 0.5 UT (Depade) 50 02-2317 tablets Heal th MG tablet 00:00: 00:00 (25 mg 00 :00 total) by mouth 1 (one) time each day. rosuvastati 2020-02 Yes UT n (Crestor) 0-29 Health 20 MG 00:00: tablet 00 spironolact 2020-02 Yes UT one-hydroCH 0-29 Health LOROthiazid 00:00: e 00 (Aldactazid e) 25-25 MG tablet rosuvastati 2020-02 Yes UT n (Crestor) 0-29 Health 20 MG 00:00: tablet 00 spironolact 2020-02 Yes UT one-hydroCH 0-29 Health LOROthiazid 00:00: e 00 (Aldactazid e) 25-25 MG tablet rosuvastati 2020-02 Yes UT n (Crestor) 0-29 Health 20 MG 00:00: tablet 00 spironolact 2020-02 Yes UT one-hydroCH 0-29 Health LOROthiazid 00:00: e 00 (Aldactazid e) 25-25 MG tablet rosuvastati 2020-02 Yes UT n (Crestor) 0-29 Health 20 MG 00:00: tablet 00 spironolact 2020-02 Yes UT one-hydroCH 0-29 Health LOROthiazid 00:00: e 00 (Aldactazid e) 25-25 MG tablet Cholecalcif Yes Take by UT dustin 6-08 mouth. Health (Vitamin D) 16:06: 10 MCG/ML 50 liquid Multiple Yes Take by [facility]Mi 6-08 mouth. Health nerals 16:06: (Multivitam 50 in) liquid Vitamin A Yes 8000U QD Take 8,000 U T 2400 MCG 6-08 Units by Health (8000 UT) 16:06: mouth 1 capsule 50 (one) time each day. cyanocobala Yes 100ug QD Take 100 U T min 6-08 mcg by Health (Vitamin 16:06: mouth 1 B-12) 100 50 (one) time MCG tablet each day. Cholecalcif Yes Take by UT dustin 6-08 mouth. Health (Vitamin D) 11:06: 10 MCG/ML 50 liquid Multiple Yes Take by [facility]amins-Mi 6-08 mouth. Health nerals 11:06: (Multivitam 50 in) liquid Vitamin A Yes 8000U QD Take 8,000 U T 2400 MCG 6-08 Units by Health (8000 UT) 11:06: mouth 1 capsule 50 (one) time each day. cyanocobala Yes 100ug QD Take 100 U T min 6-08 mcg by Health (Vitamin 11:06: mouth 1 B-12) 100 50 (one) time MCG tablet each day. buPROPion 2021- No [id number] 150mg QD Take 1 UT XL 07-29 tablet Health (Wellbutrin 00:00: 04:59 (150 mg XL) 150 MG 00 :00 total) by 24 hr mouth 1 tablet (one) time each day. Do not crush, chew, or split. buPROPion 2021- No [id number] 150mg QD Take 1 UT XL 07-29 tablet Health (Wellbutrin 00:00: 04:59 (150 mg XL) 150 MG 00 :00 total) by 24 hr mouth 1 tablet (one) time each day. Do not crush, chew, or split. buPROPion 2021- No [id number] 150mg QD Take 1 UT XL 07-29 tablet Health (Wellbutrin 00:00: 00:00 (150 mg XL) 150 MG 00 :00 total) by 24 hr mouth 1 tablet (one) time each day. Do not crush, chew, or split. clindamycin 2020- No [id number] 300mg Q.5D Take 1 UT (Cleocin) 07-29 capsule Health 300 MG 00:00: 04:59 (300 mg capsule 00 :00 total) by mouth 2 (two) times a day for 10 days. Sulfamethox Sulfamethox Yes TERI Q0.5D TAKE 1 UT azole-Trime azole-Trime 3-05 FELINSKI TABLET Physici thoprim thoprim 00:00: D.O. TWICE ans 800-160 MG 800-160 MG 00 DAILY Oral Tablet Oral Tablet UNTIL FINISHED. acetaminoph Yes 1{tbl} Take 1 UT en-codeine 9-29 tablet by Heal th (Tylenol 00:00: mouth #3) 300-30 00 every 4 MG tablet (four) hours if needed. acetaminoph 0 Yes 1{tbl} Take 1 UT en-codeine 9-29 tablet by [facility] (Tylenol 00:00: mouth #3) 300-30 00 every 4 MG tablet (four) hours if needed. acetaminoph 2020-0 Yes 1{tbl} Take 1 UT en-codeine 9-29 tablet by [facility] th (Tylenol 00:00: mouth #3) 300-30 00 every 4 MG tablet (four) hours if needed. acetaminoph 2020-0 Yes 1{tbl} Take 1 UT en-codeine 9-29 tablet by [facility] th (Tylenol 00:00: mouth #3) 300-30 00 every 4 MG tablet (four) hours if needed. acetaminoph 2020-0 Yes 1{tbl} Take 1 UT en-codeine 9-29 tablet by [facility] (Tylenol 00:00: mouth #3) 300-30 00 every 4 MG tablet (four) hours if needed. aspirin 81 2018-02 Yes 81mg 81 mg. UT MG EC 02-21 Health tablet 00:00: 00 aspirin 81 2018-02 No 81mg 81 mg. UT MG EC 02-21 Health tablet 00:00: 00:00 00 :00 Vital Signs Vital Name Observation Time Observation Value Comments Source Systolic blood pressure 2021-07-17 15:37:00 127 mm[Hg] [facility] Diastolic blood pressure 2021-07-17 15:37:00 81 mm[Hg] [facility] Heart rate 2021-07-17 15:37:00 79 /min [facility] Body temperature 2021-07-17 15:37:00 36.78 [facility] 2021-07-17 15:37:[address] [facility] Body weight 2021-07-17 15:37:[address] [facility] BMI 2021-07-17 15:37:00 44.00 kg/m2 [facility] Systolic blood pressure 2021-05-20 20:18:00 131 mm[Hg] [facility] Diastolic blood pressure 2021-05-20 20:18:00 83 mm[Hg] [facility] Heart rate 2021-05-20 20:18:00 89 /min [facility] Body height 2021-05-20 20:18:00 160 cm [facility] Body weight 2021-05-20 20:18:00 109.181 kg [facility] BMI 2021-05-20 20:18:00 42.64 kg/m2 [facility] Systolic blood pressure 2021-03-09 21:35:00 138 mm[Hg] [facility] Diastolic blood pressure 2021-03-09 21:35:00 78 mm[Hg] [facility] Heart rate 2021-03-09 21:35:00 99 /min [facility] Body height 2021-03-09 21:35:00 160 cm [facility] Body weight 2021-03-09 21:35:00 107.593 kg [facility] BMI 2021-03-09 21:35:00 42.02 kg/m2 [facility] Systolic blood pressure 2021-02-23 18:40:00 140 mm[Hg] [facility] Diastolic blood pressure 2021-02-23 18:40:00 85 mm[Hg] [facility] Heart rate 2021-02-23 18:40:00 87 /min [facility] Body height 2021-02-23 18:40:00 160 cm [facility] Body weight 2021-02-23 18:40:00 110.179 kg [facility] BMI 2021-02-23 18:40:00 43.03 kg/m2 [facility] Systolic blood pressure 2021-01-30 16:02:00 136 mm[Hg] [facility] Diastolic blood pressure 2021-01-30 16:02:00 78 mm[Hg] [facility] Heart rate 2021-01-30 16:02:00 86 /min [facility] Body temperature 2021-01-30 16:02:00 36.22 Silvia [facility] Body height 2021-01-30 16:02:00 160 cm [facility] Body weight 2021-01-30 16:02:00 105.688 kg [facility] BMI 2021-01-30 16:02:00 41.27 kg/m2 [facility] Systolic blood pressure 2020-07-29 16:05:00 158 mm[Hg] [facility] Diastolic blood pressure 2020-07-29 16:05:00 96 mm[Hg] [facility] Heart rate 2020-07-29 16:05:00 71 /min [facility] Body temperature 2020-07-29 16:05:00 36.11 [facility] Body height 2020-07-29 16:05:00 160 cm [facility] Body weight 2020-07-29 16:05:00 105.461 kg [facility] BMI 2020-07-29 16:05:00 41.19 kg/m2 [facility] Body temperature 2020-04-25 10:45:00 97 [degF] [facility] Heart Rate 2020-04-25 10:45:00 76 /min [facility] Systolic blood pressure 2020-04-25 10:45:00 140 mm[Hg] [facility] Diastolic blood pressure 2020-04-25 10:45:00 76 mm[Hg] [facility] Body height 2020-04-25 10:45:00 63 [in_us] [facility] Weight 2020-04-25 10:45:00 237 [lb_av] [facility] Body mass index (BMI) 2020-04-25 10:45:00 41.98 kg/m2 [facility] [Ratio] Systolic blood pressure 2020-01-25 10:44:00 124 mm[Hg] [facility] Diastolic blood pressure 2020-01-25 10:44:00 81 mm[Hg] [facility] Body height 2020-01-25 10:44:00 63 [in_us] [facility] Weight 2020-01-25 10:44:00 248.125 [lb_av] [facility] Body mass index (BMI) 2020-01-25 10:44:00 43.95 kg/m2 [facility] [Ratio] Body temperature 2020-01-25 10:44:00 96.5 [degF] [facility] Heart Rate 2020-01-25 10:44:00 84 /min [facility] Body height 2019-10-09 10:39:00 63 [in_us] [facility] Weight 2019-10-09 10:39:00 284.9 [lb_av] [facility] Body mass index (BMI) 2019-10-09 10:39:00 50.47 kg/m2 [facility] [Ratio] Height 2019-01-26 10:48:00 63 [in_us] [facility] Weight 2019-01-26 10:48:00 247.2 [lb_av] [facility] Body Mass Index 2019-01-26 10:48:00 43.79 kg/m2 [facility] Calculated BP Systolic 2018-08-25 10:11:00 138 mm[Hg] [facility] BP Diastolic 2018-08-25 10:11:00 73 mm[Hg] [facility] Height 2018-08-25 10:11:00 63 [in_us] [facility] ciamaryam Weight 2018-08-25 10:11:00 362.2 [lb_av] [facility] Body Mass Index 2018-08-25 10:11:00 64.16 kg/m2 [facility] Calculated Temperature 2018-08-25 10:11:00 97.7 [degF] [facility] anatoliy Heart Rate 2018-08-25 10:11:00 83 /min [facility] Procedures Procedure Date / Time Performed Performing Clinician Sourc e COMPREHENSIVE METABOLIC 2020-07-29 17:12:00 [facility] PANEL LIPID PANEL 2020-07-29 17:12:00 [facility] VITAMIN B12 2020-07-29 17:12:00 [facility] FOLATE 2020-07-29 17:12:00 [facility] HEMOGLOBIN A1C 2020-07-29 17:12:00 [facility] PTH, INTACT 2020-07-29 17:12:00 [facility] VITAMIN B1 2020-07-29 17:12:00 [facility] TSH 2020-07-29 17:12:00 [facility] VITAMIN E 2020-07-29 17:12:00 [facility] VITAMIN D 1,25 DIHYDROXY 2020-07-29 17:12:00 [facility] VITAMIN A 2020-07-29 17:12:00 [facility] IRON AND TIBC 2020-07-29 17:12:00 [facility] CBC (INCLUDES DIFF/PLT) 2020-07-29 17:12:00 [facility] (REFL) [Q] QUESTASSURED 25-OH VIT 2020-01-25 00:00:00 [facility] D, (D2,D3), LC/MS/MS [QL] CBC (INCLUDES DIFF/PLT) 2020-01-25 00:00:00 [facility] [QL] CMP W/EGFR 2020-01-25 00:00:00 [facility] [QL] FOLATE, SERUM 2020-01-25 00:00:00 [facility] [QL] HEMOGLOBIN A1c 2020-01-25 00:00:00 [facility] [QL] IRON AND TOTAL IRON 2020-01-25 00:00:00 [facility] BINDING CAPACITY [QL] LIPID PANEL 2020-01-25 00:00:00 [facility] [QL] PTH, INTACT (WITHOUT 2020-01-25 00:00:00 [facility] CALCIUM) [QL] TSH, 3RD GENERATION 2020-01-25 00:00:00 [facility] [QL] VITAMIN A (RETINOL) 2020-01-25 00:00:00 [facility] [QL] VITAMIN B1, WHOLE BLOOD 2020-01-25 00:00:00 [facility] [QL] VITAMIN B12 2020-01-25 00:00:00 [facility] [QL] VITAMIN E (TOCOPHEROL) 2020-01-25 00:00:00 [facility] [Q] QUESTASSURED 25-OH VIT 2019-10-09 00:00:00 [facility] D, (D2,D3), LC/MS/MS [QL] CBC (INCLUDES DIFF/PLT) 2019-10-09 00:00:00 [facility] [QL] CMP W/EGFR 2019-10-09 00:00:00 [facility] [QL] FOLATE, SERUM 2019-10-09 00:00:00 [facility] [QL] HEMOGLOBIN A1c 2019-10-09 00:00:00 [facility] [QL] IRON AND TOTAL IRON 2019-10-09 00:00:00 [facility] BINDING CAPACITY [QL] LIPID PANEL 2019-10-09 00:00:00 [facility] [QL] PTH, INTACT (WITHOUT 2019-10-09 00:00:00 [facility] CALCIUM) [QL] TSH, 3RD GENERATION 2019-10-09 00:00:00 [facility] [QL] VITAMIN A (RETINOL) 2019-10-09 00:00:00 [facility] [QL] VITAMIN B1, WHOLE BLOOD 2019-10-09 00:00:00 [facility] [QL] VITAMIN B12 2019-10-09 00:00:00 [facility] [QL] VITAMIN E (TOCOPHEROL) 2019-10-09 00:00:00 [facility] [LH] CBC (without 2019-01-26 00:00:00 [facility] differential) [QL] COMPREHENSIVE METABOLIC 2019-01-26 00:00:00 [facility] PANEL W/O eGFR [QLH] FOLATE, SERUM 2019-01-26 00:00:00 [facility] [QLH] HEMOGLOBIN A1c 2019-01-26 00:00:00 [facility] [QLH] IRON AND TOTAL IRON 2019-01-26 00:00:00 [facility] BINDING CAPACITY [QLH] LIPID PANEL 2019-01-26 00:00:00 [facility] [QLH] PTH, INTACT (WITHOUT 2019-01-26 00:00:00 [facility] CALCIUM) [QLH] TSH, 3RD GENERATION 2019-01-26 00:00:00 [facility] [QLH] VITAMIN A (RETINOL) 2019-01-26 00:00:00 [facility] [QLH] VITAMIN B1, WHOLE 2019-01-26 00:00:00 [facility] BLOOD [QLH] VITAMIN B12 2019-01-26 00:00:00 [facility] [QLH] VITAMIN D, 25-HYDROXY, 2019-01-26 00:00:00 [facility] LC/MS/MS [QLH] VITAMIN E (TOCOPHEROL) 2019-01-26 00:00:00 [facility] [LH] CBC (without 2018-08-25 00:00:00 [facility] differential) [QL] COMPREHENSIVE METABOLIC 2018-08-25 00:00:00 [facility] PANEL W/O eGFR [QLH] FOLATE, SERUM 2018-08-25 00:00:00 [facility] [QLH] HEMOGLOBIN A1c 2018-08-25 00:00:00 [facility] [QLH] IRON AND TOTAL IRON 2018-08-25 00:00:00 [facility] BINDING CAPACITY [QLH] LIPID PANEL 2018-08-25 00:00:00 [facility] [QLH] PTH, INTACT (WITHOUT 2018-08-25 00:00:00 [facility] CALCIUM) [QLH] TSH, 3RD GENERATION 2018-08-25 00:00:00 [facility] [QLH] VITAMIN A (RETINOL) 2018-08-25 00:00:00 [facility] [QLH] VITAMIN B1, WHOLE 2018-08-25 00:00:00 [facility] BLOOD [QLH] VITAMIN B12 2018-08-25 00:00:00 [facility] [QLH] VITAMIN D, 25-HYDROXY, 2018-08-25 00:00:00 [facility] LC/MS/MS [QLH] VITAMIN E (TOCOPHEROL) 2018-08-25 00:00:00 [facility] US Carotid artery bilateral 2018-08-25 00:00:00 [facility] Duplex [id number] Plan of Care Planned Activity Planned Date Details Comments Source Diagnostic Test 2019-10-09 [Q] QUESTASSURED 25-OH [facility] Pending 00:00:00 VIT D, (D2,D3), LC/MS/MS [code = [Q] QUESTASSURED 25-OH VIT D, (D2,D3), LC/MS/MS] Diagnostic Test 2019-10-09 [QL] CBC (INCLUDES [facility] Pending 00:00:00 DIFF/PLT) [code = [QL] CBC (INCLUDES DIFF/PLT)] Diagnostic Test 2019-10-09 [QL] CMP W/EGFR [code = [facility] Pending 00:00:00 [QL] CMP W/EGFR] Diagnostic Test 2019-10-09 [QL] FOLATE, SERUM [facility] Pending 00:00:00 [code = [QL] FOLATE, SERUM] Diagnostic Test 2019-10-09 [QL] HEMOGLOBIN A1c [facility] Pending 00:00:00 [code = [QL] HEMOGLOBIN A1c] Diagnostic Test 2019-10-09 [QL] IRON AND TOTAL [facility] Pending 00:00:00 IRON BINDING CAPACITY [code = [QL] IRON AND TOTAL IRON BINDING CAPACITY] Diagnostic Test 2019-10-09 [QL] LIPID PANEL [code [facility] Pending 00:00:00 = [QL] LIPID PANEL] Diagnostic Test 2019-10-09 [QL] PTH, INTACT [facility] Pending 00:00:00 (WITHOUT CALCIUM) [code = [QL] PTH, INTACT (WITHOUT CALCIUM)] Diagnostic Test 2019-10-09 [QL] TSH, 3RD [facility] Pending 00:00:00 GENERATION [code = [QL] TSH, 3RD GENERATION] Diagnostic Test 2019-10-09 [QL] VITAMIN A [facility] 00:00:00 (RETINOL) [code = [QL] VITAMIN A (RETINOL)] Diagnostic Test 2019-10-09 [QL] VITAMIN B1, WHOLE [facility] Pending 00:00:00 BLOOD [code = [QL] VITAMIN B1, WHOLE BLOOD] Diagnostic Test 2019-10-09 [QL] VITAMIN B12 [code [facility] 00:00:00 = [QL] VITAMIN B12] Diagnostic Test 2019-10-09 [QL] VITAMIN E [facility] 00:00:00 (TOCOPHEROL) [code = [QL] VITAMIN E (TOCOPHEROL)] Encounters Start End Encounter Admission Attending Care Care Encounter Source Date/Time Date/Time Type Type Clinicians Facility Department ID 2021-07-17 Outpatient LAKISHA, [facility] [id number] [place] 10:09:[address] 2021-06-25 Outpatient VIJAYADARSH, [facility] [id number] [place] 09:38:[id number] [place] [address] 2021-05-20 Outpatient SANTI, [facility] [id number] [place] 15:15:08 SYDNIE [id number] [facility] 2021-03-09 Outpatient SANTI, [facility] [id number] [facility] [id number] [facility] 14:29:44 [facility] 2020-12-19 Emergency [facility] [id number] Univers 20:02:11 [facility] 2020-07-29 Outpatient VIJAYADARSH, [facility] [id number] [place] 12:00:52 [facility] 2021-07-17 2021-07-17 [facility] [id number] [place] 10:30:00 11:25:07 Visit Teri SUGAR [id number] He alth [facility] [id number] [phone] AND 4 WOMENS 2021-05-20 2021-05-20 [facility] [id number] [place] 16:00:00 16:00:00 Visit Sydnie SUGAR [id number] Jose alth [place] [facility] [id number] [id number] AND 4 WOMENS 2021-03-09 2021-03-09 Office Santi [facility] [id number] [place] 16:00:00 16:56:07 Visit Sydnie SUGAR [id number] He alth [place] [facility] [id number] [id number] AND 4 WOMENS 2021-02-23 2021-02-23 Office Santi [facility] [id number] [place] 13:00:00 14:06:11 Visit Sydnie SUGAR [id number] He alth [place] [facility] [id number] [id number] AND 4 WOMENS 2021-01-30 2021-01-30 Office LEXX Banuelos [facility] [id number] [place] 10:15:00 11:20:17 Visit Teri SUGAR [id number] He alth [place] [id number] [id number] AND 4 WOMENS 2020-07-29 2020-07-29 Office Lakisha [facility] [id number] [place] 10:30:56 12:13:09 Visit Teri SUGAR [id number] He alth [place] [facility] [id number] [address] 0 [id number] AND 4 WOMENS 2020-06-11 2020-06-11 Emergency [facility] [id number] 17:39:00 21:03:00 Guillermina Dumont [id number] [place] 4.2.7.2.686 [place] [id number] [id number] 2020-06-11 2020-06-11 Orders Doctor PATIENCE [id number] 00:00:00 00:00:00 Only Unassigned, VISHNU 350.1.13.10 [facility] 4.2.7.2.686 [id number] [id number] 2020-04-25 2020-04-25 Appointmen LAKISHA [facility] [id number] [place] 10:45:00 10:45:00 t; TERI, Surgery - Phy deja BANUELOS D.O. [place] Xavier Holly.OKieran [place] 2020-01-25 2020-01-25 Maureen BANUELOS, [facility] [id number] [place] 10:45:00 10:45:00 t; TERI, Surgery - Phy deja BANUELOS D.O. [facility] Xavier GOODRICH.OKieran [place] 2019-11-20 2019-11-20 Emergency Kaale, [facility] [id number] 12:52:00 18:13:00 Brock Dumont [id number] [place] 4.2.7.2.686 [place] [id number] [id number] 2019-10-09 2019-10-09 Maureen BANUELOS, [facility] [id number] [place] 10:45:00 10:45:00 t; TERI, Surgery - Phy deja BANUELOS D.O. [place] dorothy GOODRICH D.O. 2019-07-23 2019-07-25 Outpatient Nohelia WILSON, [facility] [id number] [facility] 16:31:00 16:21:00 ANIKA 2019-07-20 2019-07-20 Maureen BANUELOS, [facility] [id number] [place] 11:45:00 11:45:00 t; Matilde GOODRICH D.O. ans MELISSA, D.O. 2019-07-13 2019-07-13 Emergency [facility] [address] [facility] 17:45:00 22:54:00 2019-07-05 2019-07-08 Inpatient LAKISHA, [facility] MIKE 7502 [facility] 06:42:00 13:00:00 TERI 2019-07-05 2019-07-05 Maureen BANUELOS, [facility] [id number] [place] 08:00:00 08:00:00 t; TERI Physi Daniela Diallo D.O. 2019-06-29 2019-06-29 Maureen BANUELOS, [facility] [id number] [place] 10:00:00 10:00:00 t; TERI Physi Daniela Diallo D.O. 2019-06-05 2019-06-05 Appointclaudette BANUELOS, UTP UTP [id number] [place] 10:00:00 10:00:00 t; TERI, Physi Ed DialloO. ans Ed GOODRICHO. 2019-05-04 2019-05-04 Appointclaudette BANUELOS, [facility] [place]TP [id number] [place] 09:30:00 09:30:00 t; TERI, Physi ci Ed BANUELOSO. ans TERI D.O. 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 ans Ed GOODRICHO. 2019-01-26 2019-01-26 Maureen BANUELOS, [facility] General [id number] [place] 10:15:00 10:15:00 t; TERI, Surgery - [facility] deja BANUELOS D.O. [place] ans TERI, Medical D.O. [place] 2019-01-11 2019-01-11 [facility] WOLIN-RIKLI UTP UTP [id number] [place] 11:00:00 11:00:00 t; JACE Correa Phys ici [address] ans IN JACE, RD 2018-12-14 2018-12-14 Appointmen WOLIN-RIKLI UTP UTP [id number] [place] 11:00:00 11:00:00 t; JACE Correa Phys ici [address] ans INJACE RD 2018-10-11 2018-10-11 [facility], [facility] [id number] [place] 08:00:00 08:00:00 t; TERI, Physi Daniela Diallo D.O. 2018-10-11 2018-10-11 Outpatient [facility] MIKE 7501 [facility] 06:40:00 06:40:00 2018-09-28 2018-09-28 [facility] KENDAL [facility] [id number] [place] 10:30:00 10:30:00 t; N, JACE, Phys ici [address] ans IN, JACE, RD 2018-08-25 2018-08-25 [facility] General [id number] [place] 10:00:00 10:00:00 t; TERI, Surgery - Kailyn BANUELOS D.O. [place] [facility] Holly.O. Center Results Test Description Test Time Test Comments Results Result [facility] e Comments SCR MAMM 2021-06-01 BILATERAL MARCOS 09:14:22 CAD DIGITAL Name: Jann : 1965 Sex: F - SCR MAMM BILATERAL MARCOS CAD DIGITALBILATERAL DIGITAL SCREENING MAMMOGRAM 3D/2D WITH CAD: 05/15/2021LINICAL: Asymptomatic. Digital breast tomosynthesis was performed in addition to routine CC and MLO views. Current mammographic images were evaluated by [employer] CAD (computer-aided detection) software. Comparison is made to exam dated 07/01/2016 mammogram - [facility]. There are scattered fibroglandular tissues in both breasts. There are benign calcifications in the right breast. No suspicious mass, architectural distortion, malignant type calcification, or lymph node abnormality detected. Breast architecture is stable compared to prior exams.IMPRESSION: BENIGNThere is no mammographic evidence of malignancy. Resume annual screening mammography in one year. Meaghan haley/briana:06/01/2021 09:14:22 Mill Roll Operator: Ibis Gunderson MM, [facility] Mammographyletter sent: BIRADS 1-2 Normal Mammogram BI-RADS: 2 Benign CBC (INCLUDES DIFF/PLT) (REFL) 2020-08-02 17:00:00 Test Item Value Reference Range Interpretation Comme nts WHITE BLOOD CELL COUNT See_Comment [Aut omated message] The (test code = 6690-2) system which generated this result tra nsmitted reference range : 3.8 - 10.8 Thousand/u L. The reference range was not used to interpr et this result as mark l/abnormal. RED BLOOD CELL COUNT See_Comment [Autom ated message] The (test code = 789-8) system w [facility] generated this result tra nsmitted reference range : 3.80 - 5.10 Million/uL . The reference range was not used to interpr et this result as mark l/abnormal. HEMOGLOBIN (test code 13.3 g/dL 11.7-15.5 = 718-7) HEMATOCRIT (test code 41.1 % 35.0-45.0 = 4544-3) MCV (test code = 92.2 fL 80.0-100.0 787-2) MCH (test code = 29.8 pg 27.0-33.0 785-6) MCHC (test code = 32.4 g/dL 32.0-36.0 786-4) RDW (test code = 12.3 % 11.0-15.0 788-0) PLATELET COUNT (test See_Comment [Autom ated message] The code = 777-3) system which g enerated this result tra nsmitted reference range : 140 - 400 Thousand/uL. Th e reference range was not u sed to interpret this result as normal/abnormal . MPV (test code = 12 fL 7.5-12.5 776-5) ABSOLUTE NEUTROPHILS See_Comment [Autom ated message] The (test code = 751-8) system w [facility] generated this result tra nsmitted reference range : 1500 - 7800 cells/uL. The reference range was not used to interpr et this result as mark l/abnormal. ABSOLUTE LYMPHOCYTES See_Comment [Autom ated message] The (test code = 731-0) system w [email or web address] generated this result tra nsmitted reference range : 850 - 3900 cells/uL. The reference range was not used to interpr et this result as mark l/abnormal. ABSOLUTE MONOCYTES See_Comment [Automat ed message] The (test code = 742-7) system w [email or web address] generated this result tra nsmitted reference range : 200 - 950 cells/uL. The r eference range was not u sed to interpret this result as normal/abnormal . ABSOLUTE EOSINOPHILS See_Comment [Autom ated message] The (test code = 711-2) system w [email or web address] generated this result tra nsmitted reference range : 15 - 500 cells/uL. The r eference range was not u sed to interpret this result as normal/abnormal . ABSOLUTE BASOPHILS See_Comment [Automat ed message] The (test code = 704-7) system w [email or web address] generated this result tra nsmitted reference range : 0 - 200 cells/uL. The r eference range was not u sed to interpret this result as normal/abnormal . NEUTROPHILS (test code 44.8 % = 770-8) LYMPHOCYTES (test code 42.7 % = 736-9) MONOCYTES (test code = 7.7 % 5905-5) EOSINOPHILS (test code 3.2 % = 713-8) BASOPHILS (test code = 1.6 % 706-2) RAC (test code = RAC) Performing Organization Information: ? ?Site ID: [facility] ? ?Name: [facility] ? ?Address: [address] [place] [address] ? ?Director: BROCK FRANCO MD [facility] [id number] 17:00:00 Test Item Value Reference Interpretation Comments Range GLUCOSE (test 90 mg/dL 65-99 ? Fa sting code = 2345-7) reference int erval UREA NITROGEN 15 mg/dL 7-25 (BUN) (test code = 3094-0) CREATININE (test 0.77 mg/dL 0.50-1.05 For patient s >49 code = 2160-0) years of age, the reference limit for Creatinine is approximately 1 3% higher for peopleidentifie d as -Ingrid n. eGFR NON- See_Comment [Automated message] MACEDONIAN (test The system [facility] code = 46057-5) generated th is result transmitted ref erence range: > OR = 6 0 mL/min/1.73m2. The reference range was not used to int erpret this result as normal/abnormal . eGFR See_Comment [Automated mes nery] MACEDONIAN (test The system ich code = 20262-0) generated th is result transmitted ref erence range: > OR = 6 0 mL/min/1.73m2. The reference range was not used to int erpret this result as normal/abnormal . BUN/CREATININE NOT APPLICABLE See_Comment [Automated message] RATIO (test code The system which = 3097-3) generated this result transmitted ref erence range: 6 - 22 ( calc). The reference r jere was not used to interpret this result as normal/abnor mal. SODIUM (test code 140 mmol/L 135-146 = 2951-2) POTASSIUM (test 4.5 mmol/L 3.5-5.3 code = 2823-3) CHLORIDE (test 101 mmol/L 98-110 code = 2075-0) CARBON DIOXIDE 31 mmol/L 20-32 (test code = 8-9) CALCIUM (test 9.5 mg/dL 8.6-10.4 code = 16649-5) PROTEIN, TOTAL 7.2 g/dL 6.1-8.1 (test code = 2885-2) ALBUMIN (test 4.1 g/dL 3.6-5.1 code = 1751-7) GLOBULIN (test See_Comment [Automated m essage] code = 75709-4) The system [facility] generated this result transmitted ref erence range: 1.9 - 3. 7 g/dL (calc). The ref erence range was not u sed to interpret this result as normal/abnor mal. ALBUMIN/GLOBULIN See_Comment [Automated message] RATIO (test code The system which = 1759-0) generated this result transmitted ref erence range: 1.0 - 2. 5 (calc). The ref erence range was not u sed to interpret this result as normal/abnor mal. BILIRUBIN, TOTAL 0.5 mg/dL 0.2-1.2 (test code = 1974-) ALKALINE 99 U/L 37-153 PHOSPHATASE (test code = 6768-6) AST (test code = 16 U/L 10-35 1920-8) ALT (test code = 13 U/L 6-29 1742-6) RAC (test code = Performing RAC) Organization Information: ? ?Site ID: [facility] ? ?Name: [facility] ? ?Address: [address] [place] [address] ? ?Director: BROCK FRANCO MD [facility] [id number] 17:00:00 Test Item Value Reference Range Interpretation Comments FOLATE, SERUM 7.2 ng/mL ? (test code = ? Referen ce 2284-8) Range ? L ow: ? <3.4 ? Borderline: ? ?3.4-5.4 ? Normal: ?>5.4 RAC (test code Performing = RAC) Organization Information: ? ?Site ID: [facility] ? ?Name: [facility] ? ?Address: [address] [place] [address] ? ?Director: BROCK FRANCO MD [facility] [id number] 17:00:00 Test Item Value Reference Range Interpretation Comments HEMOGLOBIN A1c See_Comment For the purpo se of (test code = screening for t he 4548-4) presence ofdiab etes: <5.7% ? ? ? Consistent with the absence of diabetes5.7-6.4 % ? ?Consistent wit h increased risk for diabetes ?(prediabetes)> or =6.5% ?Consiste nt with diabetes T his assay result is consistent with a decreased risko f diabetes. Curre ntly, no consensus ex ists regarding use ofhemoglobin A1 c for diagnosis of di abetes in children. According to [place] Diabetes Associ ation (ADA)guidelines , hemoglobin A1c <7.0% represents optimalcontrol in non- di abetic patients. Differentmetric s may apply to specif ic patient populat ions. Standards of Me dical Care in Diabetes(ADA). ? [Automated mess age] The system whic h generated this result transmitted ref erence range: <5.7 % o f total Hgb. The reference range was not used to int erpret this result as normal/abnormal . RAC (test code = Performing RAC) Organization Information: ? ?Site ID: [facility] ? ?Name: [facility] ? ?Address: [address] [place] [address] ? ?Director: BROCK FRANCO MD [facility] and [id number] 17:00:00 Test Item Value Reference Range Interpretation Comments IRON, TOTAL (test See_Comment [Automate d code = 2498-4) message] The system which generated this result transmit viry reference range : 45 - 160 mcg/dL . The reference range was not u sed to interpret th is result as normal/abnormal . IRON BINDING See_Comment [Automated CAPACITY (test message] The code = 2500-7) system which generated this result transmit viry reference range : 250 - 450 mcg/d L (calc). The reference range was not used to interpret this result as normal/abnormal . % SATURATION See_Comment [Automated (test code = message] The 2502-3) system which generated this result transmit viry reference range : 16 - 45 % (calc ). The reference range was not u sed to interpret th is result as normal/abnormal . RAC (test code = Performing RAC) Organization Information: ? ?Site ID: [facility] ? ?Name: [facility] ? ?Address: [address] [place] [address] ? ?Director: BROCK FRANCO MD [facility] [id number] 17:00:00 Test Item Value Reference Range Interpretation Comments CHOLESTEROL, TOTAL 229 mg/dL <200 H (test code = 2093-3) HDL CHOLESTEROL 58 mg/dL See_Comment [Automated (test code = 2084-9) message ] The system which generated this result transmitted reference range : > OR = 50. The reference range was not used to interpret this result as normal/abnormal . TRIGLYCERIDES (test 82 mg/dL <150 code = 2571-8) LDL-CHOLESTEROL mg/dL (calc) H Reference ra nge: (test code = <100 Desirable 70275-7) range <100 mg/d L for primary prevention; ?<7 0 mg/dL for patients with C HD or diabetic patients with > or = 2 CHD risk factors. LDL-C is now calculated using the Lashonda calculation, which is a validated novel method providin g better accuracy than the Friedewald equation in the estimation of LDL-C. Ashwin S S et al. TOMMIE. 2013;310(19): 4242-6616 (http://educati on .[employer] .com/faq/HZJ361 ) CHOL/HDLC RATIO See_Comment [Automated (test code = 9830-1) message ] The system which generated this result transmitted reference range : <5.0 (calc). Th e reference range was not used to interpret this result as normal/abnormal . NON HDL CHOLESTEROL See_Comment H For parris ents with (test code = diabetes plus 1 35458-1) major ASCVD ris k factor, treatin g to a non-HDL-C goal of <100 mg/dL (LDL-C of <70 mg/dL) is considered a therapeutic option. [Automated message] The system which generated this result transmitted reference range : <130 mg/dL (calc). The reference range was not used to interpret this result as normal/abnormal . RAC (test code = Performing RAC) Organization Information: ? ?Site ID: [facility] ? ?Name: [facility] ? ?Address: [address] [place] [address] ? ?Director: BROCK FRANCO MD Lab Interpretation Abnormal (test code = 02407-9) [facility], [id number] 17:00:00 Test Item Value Reference Interpretation Comments Range PARATHYROID 29 pg/mL 14-64 Interpretive G uide ? HORMONE, INTACT ?Intact PTH ? (test code = Calcium-------- ? 2731-8) ? -------Normal P arathyroid ? ?Normal ? NormalHypoparat hyroidism ? ?Low or Low Nor mal ? ?LowHyperparath yroidism ? Primary ?Normal or High ? ? ? H igh ? Secondary ?High ? Nor mal or Low ? Tertiary ? High ? HighNon-Parathy roid ? Hypercalcemia ? ? ?Low or Low Normal ? ?H igh RAC (test code Performing = RAC) Organization Information: ? ?Site ID: [facility] ? ?Name: [facility] ? ?Address: [address] [place] [phone] ? ?Director: BROCK FRANCO MD [facility] [id number] 17:00:00 Test Item Value Reference Range Interpretation Comments TSH (test code mIU/L ? = 3016-3) ?Reference Rang e ?> or = 20 Year s ?0.40-4.50 ? Range s ?First trimester ? ?0.26-2.66 ?Second trimest er ? 0.55-2.73 ?Third trimes ter ? ?0.43-2.91 RAC (test code Performing = RAC) Organization Information: ? ?Site ID: [facility] ? ?Name: [facility] ? ?Address: [address] [place] [phone] ? ?Director: BROCK FRANCO MD [facility] [id number] 17:00:00 Test Item Value Reference Range Interpretation Comments VITAMIN A See_Comment Clin Chem Vol . (RETINOL) 34.No.8. [id number]. (test code = 1998Vitamin 2923-1) supplementation within 24 hours prior to blood draw m ay affect the accu racy of results. ? T his test was develo ped and its analyti denisse performance characteristics have been determined by [facility] [employer] [facility]. It has not been cl eared or approved by theFDA. This as say has been valida viry pursuant to the CLIA regulations and is used for clinic al purposes. [Aut omated message] The sy stem which generated this result transmit viry reference range : 38 - 98 mcg/dL. The reference range was not used to int erpret this result as normal/abnormal . RAC (test code Performing = RAC) Organization Information: ? ?Site ID: [facility] ? ?Name: [facility] ? ?Address: [address] [place] [address] ? ?Director: RUBEN RODRIGUEZ MD [facility] [id number] 17:00:00 Test Item Value Reference Range Interpretation Comments VITAMIN B12 (test code = 1666 pg/mL 200-1100 H 2132-9) RAC (test code = RAC) Performing Organization Information: ? ?Site ID: [facility] ? ?Name: [facility] ? ?Address: [address] [place] [phone] ? ?Director: BROCK FRANCO MD Lab Interpretation (test Abnormal code = 27083-6) [facility] [id number] 17:00:00 Test Item Value Reference Range Interpretation Comments ALPHA-TOCOPH mg/L ? ? ?Reference Range DUSTIN (test ? ? ?5.7-19.9 m g/L ? ? code = ?Levels of 1823-4) alpha-tocophero l <5 mg/L are ? ? ?consistent wit h Vitamin E defic iency in ? ? ?adults.Vitamin supplementation within 24 hours prior to blood draw may affect the accuracy of results. ? ? T his test was develo ped and its analytical performance characteristics have been determined by [employer]. It has not been cl eared or approved by theFDA. This assay has been validated pursu ant to the CLIA regula tions and is used for clinical purpos es. [id number]-ETCWE-[id number] See_Comment This test was OCOPHEROL developed and i ts (test code = analytical perf ormance 78460-3) characteristics have been determined by [employer]. It has not been cl eared or approved by theFDA. This assay has been validated pursu ant to the CLIA regula tions and is used for clinical purpos es. [Automated mess age] The system [employer] generated this result transmitted ref erence range: <4.4 mg/ L . The reference range was not used to int erpret this result as normal/abnormal . RAC (test Performing code = RAC) Organization Information: ? ?Site ID: [facility] ? ?Name: [facility] ? ?Address: [address] [place] [address] ? ?Director: RUBEN RODRIGUEZ MD [facility][QL] LIPID [id number] 11:23:00 Test Item Value Reference Range Interpretation Comments CHOLESTEROL, TOTAL; 229 mg/dl <200 Above High Threshold (test code = 3-3) HDL CHOLESTEROL; 46 mg/dl > OR = 50 Below Low Threshold (test code = 5-9) TRIGLYCERIDES; 137 mg/dl <150 N Normal (test code = 2571-8) LDL-CHOLESTEROL; 157 {MG/DL Reference r jere: Above High Threshold DENISSE} <100 De sirable range (test code = <100 mg/[place] [address]-6) primary prevent ion; <70 mg/dL for patients with C HD or diabetic patien ts with > or = 2 C HD risk factors. L DL-C is now calculat ed using the Lashonda calculation, wh ich is a validated novel method providin g better accuracy than the Friedewald equation in the estimation of L DL-C. Ashwin SS et al . TOMMIE. 2013;310( 19): 5229-8960 (http://educati on.[employer].com. com/f aq/FCC523) CHOL/HDLC RATIO 5.0 {CALC} <5.0 (test code = CHOL/HDLC RATIO) NON HDL CHOLESTEROL 183 {MG/DL <130 For parris ents with (test code = NON HDL DENISSE} diabete s plus 1 CHOLESTEROL) major ASCVD ris k factor, treatin g to a non-HDL-C goa l of <100 mg/dL (LDL -C of <70 mg/dL) is considered a therapeutic opt ion. [facility][QL] IRON AND TOTAL IRON BINDING [id number] 11:23:00 Test Item Value Reference Range Interpretation Comments IRON, TOTAL (test code = 86 {mcg/dl} 45-160 N IRON, TOTAL) IRON BINDING CAPACITY (test 364 {mcg/dL ca} 250-450 N code = IRON BINDING CAPACITY) % SATURATION (test code = % 24 {% CALC} 16-45 N SATURATION) [facility][QL] CMP [id number] 11:23:00 Test Item Value Reference Range Interpretation Comments GLUCOSE; Normal 83 mg/dl 65-99 N Fasting refe rence (test code = interval 1547-9) UREA NITROGEN 13 mg/dl 7-25 N (BUN) (test code = UREA NITROGEN (BUN)) CREATININE (test 0.78 mg/dl 0.50-1.05 N For patient s >49 years code = of age, the ref erence CREATININE) limitfor Creati nine is approximately 1 3% higher for peopleidentifie d as -Ingrid n. eGFR NON-AFR. 86 {ML/MIN/1.7} > OR = 60 N MACEDONIAN (test code = eGFR NON-AFR. MACEDONIAN) eGFR 100 {ML/MIN/1.7} > OR = 60 N MACEDONIAN (test code = eGFR ) BUN/CREATININE NOT APPLICABLE 6-22 RATIO (test code = BUN/CREATININE RATIO) SODIUM (test code 141 mmol/L 135-146 N = SODIUM) POTASSIUM (test 4.7 mmol/L 3.5-5.3 N code = POTASSIUM) CHLORIDE (test 104 mmol/L 98-110 N code = CHLORIDE) CARBON DIOXIDE 30 mmol/L 20-32 N (test code = CARBON DIOXIDE) CALCIUM (test 9.0 mg/dl 8.6-10.4 N code = CALCIUM) PROTEIN, TOTAL 7.2 g/dl 6.1-8.1 N (test code = PROTEIN, TOTAL) ALBUMIN (test 4.0 g/dl 3.6-5.1 N code = ALBUMIN) GLOBULIN (test 3.2 {G/DL CALC} 1.9-3.7 N code = GLOBULIN) ALBUMIN/GLOBULIN 1.3 {CALC} 1.0-2.5 N RATIO (test code = ALBUMIN/GLOBULIN RATIO) BILIRUBIN, TOTAL; 0.7 mg/dl 0.2-1.2 N Normal (test code = 87674-2) ALKALINE 112 u/l 37-153 N PHOSPHATASE (test code = ALKALINE PHOSPHATASE) AST; Normal (test 16 u/l 10-35 N code = 1916-6) ALT; Normal (test 14 u/l 6-29 N code = 1742-6) [facility][QL] CBC (INCLUDES DIFF/PLT)2020-01-25 11:23:00 Test Item Value Reference Range Interpretation Comments WHITE BLOOD CELL COUNT 7.6 {Thousand/u} 3.8-10.8 N (test code = WHITE BLOOD CELL COUNT) RED BLOOD CELL COUNT (test 4.71 {Million/uL} 3.80-5.10 N code = RED BLOOD CELL COUNT) HEMOGLOBIN; Normal (test 14.2 g/dl 11.7-15.5 N code = 34706-7) HEMATOCRIT; Normal (test 43.3 % 35.0-45.0 N code = 4544-3) MCV; Normal (test code = 91.9 fL 80.0-100.0 N 787-2) MCHC; Normal (test code = 32.8 g/dl 32.0-36.0 N 33437-7) RDW; Normal (test code = 13.1 % 11.0-15.0 N 788-0) PLATELET COUNT; Normal 290 {Thousand/u} 140-400 N (test code = 777-3) MPV; Above High Threshold 13.1 fL 7.5-12.5 (test code = 50657-9) ABSOLUTE NEUTROPHILS (test 3846 {cells/uL} 8574-7030 N code = ABSOLUTE NEUTROPHILS) ABSOLUTE LYMPHOCYTES (test 2683 {cells/uL} 850-3900 N code = ABSOLUTE LYMPHOCYTES) ABSOLUTE MONOCYTES (test 676 {cells/uL} 200-950 N code = ABSOLUTE MONOCYTES) ABSOLUTE EOSINOPHILS (test 281 {cells/uL} 15-500 N code = ABSOLUTE EOSINOPHILS) ABSOLUTE BASOPHILS (test 114 {cells/uL} 0-200 N code = ABSOLUTE BASOPHILS) NEUTROPHILS (test code = 50.6 % N NEUTROPHILS) LYMPHOCYTES (test code = 35.3 % N LYMPHOCYTES) MONOCYTES; Normal (test 8.9 % N code = 52136-7) EOSINOPHILS; Normal (test 3.7 % N code = 22846-4) BASOPHILS; Normal (test 1.5 % N code = 73475-1) [facility][QL] PTH, INTACT (WITHOUT CALCIUM)2020-01-25 11:23:00 Test Item Value Reference Range Interpretation Comments PARATHYROID 47 pg/ml 14-64 N Interpretive [place] Intact HORMONE, INTACT PTH (test code = Calcium-------- PARATHYROID HORMONE, INTACT) -------Norm al Parathyroid Normal NormalHypoparat hyroidism Low or Low Norm al LowHyperparathy roidism Primary Normal or High High Secondary High Normal or Low Tertiary High HighNon-Parathy roid Hypercalcemia Low or Low Normal High [facility][QL] VITAMIN E (TOCOPHEROL)2020-01-25 11:23:00 Test Item Value Reference Range Interpretation Comments ALPHA-TOCOPHEROL 15.9 mg/L Reference R jere (test code = 5.7-19.9 mg/L ALPHA-TOCOPHEROL) Levels of alpha-tocopherol <5 mg/L are consistent with Vitamin E deficiency in adults.Vitamin supplementation within 24 hours prior to blood draw may affect the accuracy of results. T his test was developed and i ts analytical perf ormance characteristics have been determined by [facility]. It has not been cleared or approved by theFDA. This as say has been validated pursu ant to the CLIA regulation s and is used for clinic al purposes. [id number] 1.8 mg/L <4.4 This test was developed and DUSTIN (test code = its analyt ical performance [id number] characteri stics have been DUSTIN) determined by [facility]. It has not been cleared or approved by theFDA. This as say has been validated pursu ant to the CLIA regulation s and is used for clinic al purposes. [facility][QL] FOLATE, [id number] 11:23:00 Test Item Value Reference Range Interpretation Comments FOLATE, SERUM (test 6.0 ng/ml N Referenc e Range code = FOLATE, Low: SERUM) <3.4 Steven rderline: 3.4-5.4 Nor mal: >5.4 [facility][QL] TSH, 3RD [id number] 11:23:00 Test Item Value Reference Range Interpretation Comments TSH; Normal (test 1.16 {MIU/L} N Reference Range code = 10956-6) > or = 20 Years 0.40-4.5 0 Range s First trimes ter 0.26-2.66 Second trimeste r 0.55-2.73 Third trimester 0.43-2.91 [facility][QL] VITAMIN [id number] 11:23:00 Test Item Value Reference Range Interpretation Comments VITAMIN B12 (test code = VITAMIN B12) >2000 200-1100 [facility][QL] VITAMIN B1, WHOLE [id number] 11:23:00 Test Item Value Reference Range Interpretation Comments VITAMIN B1, WHOLE 95 nmol/L 78-185 Vitamin hobbs pplementation BLOOD (test code = within 24 hours prior VITAMIN B1, WHOLE toblood dr rutledge may affect BLOOD) the accuracy of results. This test was d eveloped and its analyti denisse performance characteristics have been determined by [facility]. It has not been cleared or approved by theFDA. This assay has been validated pursuant to the CLIA regula tions and is used for cli nical purposes. [facility][QL] HEMOGLOBIN [id number] 11:23:00 Test Item Value Reference Range Interpretation Comments HEMOGLOBIN A1c; 5.2 {% of <5.7 N For the purp ose of Normal (test code total} screening for the = 4548-4) presence ofdiab etes: <5.7% Con sistent with the absenc e of diabetes5.7-6.4 % Consistent with increased risk for diabetes (prediabetes)> or =6.5% Consistent wit h diabetes This a ssay result is consi stent with a decrease d riskof diabetes. Curre ntly, no consensus exist s regarding use ofhemoglobin A1 c for diagnosis of di abetes in children. Ac cording to [place] [employer] [employer] (ADA)guidelines , hemoglobin A1c <7.0% represents optimalcontrol in non- di abetic patients. Differentmetric s may apply to specif ic patient populat ions. Standards of Me dical Care in Diabete s(ADA). [facility][QL] VITAMIN A (RETINOL)2020-01-25 11:23:00 Test Item Value Reference Range Interpretation Comments VITAMIN A (test 38 {mcg/dl} 38-98 Clin Chem Vol. 34.No.8. code = VITAMIN A) [id number] 8. 1997Vitamin supplementation within 24 hours prior to blood draw may affect the accuracy of results. T his test was developed a nd its analytical perf ormance characteristics have been determined by [employer]. It has not been cleared or approved by theFDA. This assay has been validated pursuant to the CLIA reg ulations and is used for clinical purposes. [facility][Q] QUESTASSURED 25-OH VIT D, (D2,D3), [id number] 11:23:00 Test Item Value Reference Range Interpretation Comments VITAMIN D, 42 ng/ml 30-100 (Note) Vitamin D, 25-Hydroxy 25-OH, TOTAL reports concent rations of two (test code = common forms, 2 5-OHD2 and VITAMIN D, 25-OHD3. 25-OHD 3 indicates both 25-OH, TOTAL) endogenous pro duction and supplementation . 25-OHD2 is an indicator of ex ogenous sources such as diet o r supplementation . Therapy is based on measu rement of Total 25-OHD, with le vels <20 ng/mL indicative of V itamin D deficiency, whi le levels between 20 ng/m L and 30 ng/mL suggest insuffi ciency. Optimal levels are > or = 30 ng/mL. Vitamin D is fa t-soluble and therefore inadv ertent or intentional ing estion of excessively hig h amounts could be toxic. Studi es in children and adults sugg est blood levels would need to e xceed 150 ng/mL before there i s any concern. Shira RODRIGUEZ, Danay RAMON, Caprice LEVINE, et al. Evaluation, nohemy atment and prevention of v itamin D deficiency: an Endocrine Society clinica l practice guideline. J Cl in Endocrinol Metab. 2011;96( 7):1911-30. For additional info rmation, please refer to http://Celaton/faq/FAQ19 9 VITAMIN D, 42 ng/ml Reference range : Not established 25-OH, D3 (test code = VITAMIN D, 25-OH, D3) VITAMIN D, <4.0 (Note)Reference range: Not 25-OH, D2 established Thi s test was (test code = developed and i ts analytical VITAMIN D, performancechar acteristics have 25-OH, D2) been determined by [facility]. It has not beencle ared or approved by the US Food and Drug Administration. Thisassay has been validated pursuant to the CLIA regulation and is usedfor Clinical purpos es.MDFmed [id number] [place] [address],[address] [facility] [id number] 00MichaeCarla Moore Note 1 No te 1 For additional info rmation, please refer to http://Celaton/faq/FAQ19 9 (This link is being provided for informational/e ducational purposes only.) [facility][QL] LIPID [id number] 09:10:00 Test Item Value Reference Range Interpretation Comments CHOLESTEROL, TOTAL; 205 mg/dl <200 Above High Threshold (test code = 3-3) HDL CHOLESTEROL; 39 mg/dl > OR = 50 Below Low Threshold (test code = 5-9) TRIGLYCERIDES; 104 mg/dl <150 N Normal (test code = 2571-8) LDL-CHOLESTEROL; 144 {MG/DL Reference r jere: Above High Threshold DENISSE} <100 De sirable range (test code = <100 mg/[place] [address]-9) primary prevent ion; <70 mg/dL for patients with C HD or diabetic patien ts with > or = 2 C HD risk factors. L DL-C is now calculat ed using the Lashonda calculation, wh ich is a validated novel method providin g better accuracy than the Friedewald equation in the estimation of L DL-C. Ashwin SS et al . TOMMIE. 2013;310( 19): 9800-9198 ([email or web address]://educati on.Lotour.com. Crossbar/f aq/OIM922) CHOL/HDLC RATIO 5.3 {CALC} <5.0 (test code = CHOL/HDLC RATIO) NON HDL CHOLESTEROL 166 {MG/DL <130 For parris ents with (test code = NON HDL DENISSE} diabete s plus 1 CHOLESTEROL) major ASCVD ris k factor, treatin g to a non-HDL-C goa l of <100 mg/dL (LDL -C of <70 mg/dL) is considered a therapeutic opt ion. [facility][QL] IRON AND TOTAL IRON BINDING [id number] 09:10:00 Test Item Value Reference Range Interpretation Comments IRON, TOTAL (test code = 67 {mcg/dl} 45-160 N IRON, TOTAL) IRON BINDING CAPACITY (test 326 {mcg/dL ca} 250-450 N code = IRON BINDING CAPACITY) % SATURATION (test code = % 21 {% CALC} 16-45 N SATURATION) [facility][QL] CMP [id number] 09:10:00 Test Item Value Reference Range Interpretation Comments GLUCOSE; Normal 85 mg/dl 65-99 N Fasting refe rence (test code = interval 1547-9) UREA NITROGEN 10 mg/dl 7-25 N (BUN) (test code = UREA NITROGEN (BUN)) CREATININE (test 0.66 mg/dl 0.50-1.05 N For patient s >49 years code = of age, the ref erence CREATININE) limitfor Creati nine is approximately 1 3% higher for peopleidentifie d as -Ingrid n. eGFR NON-AFR. 100 {ML/MIN/1.7} > OR = 60 N MACEDONIAN (test code = eGFR NON-AFR. MACEDONIAN) eGFR 116 {ML/MIN/1.7} > OR = 60 N MACEDONIAN (test code = eGFR ) BUN/CREATININE NOT APPLICABLE 6-22 RATIO (test code = BUN/CREATININE RATIO) SODIUM (test code 141 mmol/L 135-146 N = SODIUM) POTASSIUM (test 4.2 mmol/L 3.5-5.3 N code = POTASSIUM) CHLORIDE (test 105 mmol/L 98-110 N code = CHLORIDE) CARBON DIOXIDE 27 mmol/L 20-32 N (test code = CARBON DIOXIDE) CALCIUM (test 8.9 mg/dl 8.6-10.4 N code = CALCIUM) PROTEIN, TOTAL 6.5 g/dl 6.1-8.1 N (test code = PROTEIN, TOTAL) ALBUMIN (test 3.6 g/dl 3.6-5.1 N code = ALBUMIN) GLOBULIN (test 2.9 {G/DL CALC} 1.9-3.7 N code = GLOBULIN) ALBUMIN/GLOBULIN 1.2 {CALC} 1.0-2.5 N RATIO (test code = ALBUMIN/GLOBULIN RATIO) BILIRUBIN, TOTAL; 0.9 mg/dl 0.2-1.2 N Normal (test code = 37278-6) ALKALINE 96 u/l 37-153 N PHOSPHATASE (test code = ALKALINE PHOSPHATASE) AST; Normal (test 14 u/l 10-35 N code = 1916-6) ALT; Normal (test 11 u/l 6-29 N code = 1742-6) [facility][QL] CBC (INCLUDES DIFF/PLT)2019-10-11 09:10:00 Test Item Value Reference Range Interpretation Comments WHITE BLOOD CELL COUNT 5.6 {Thousand/u} 3.8-10.8 N (test code = WHITE BLOOD CELL COUNT) RED BLOOD CELL COUNT (test 4.43 {Million/uL} 3.80-5.10 N code = RED BLOOD CELL COUNT) HEMOGLOBIN; Normal (test 13.2 g/dl 11.7-15.5 N code = 20458-2) HEMATOCRIT; Normal (test 40.7 % 35.0-45.0 N code = 4544-3) MCV; Normal (test code = 91.9 fL 80.0-100.0 N 787-2) MCHC; Normal (test code = 32.4 g/dl 32.0-36.0 N 70803-6) RDW; Normal (test code = 14.1 % 11.0-15.0 N 788-0) PLATELET COUNT; Normal 258 {Thousand/u} 140-400 N (test code = 777-3) MPV; Above High Threshold 13.3 fL 7.5-12.5 (test code = 13369-4) ABSOLUTE NEUTROPHILS (test 2901 {cells/uL} 5461-5820 N code = ABSOLUTE NEUTROPHILS) ABSOLUTE LYMPHOCYTES (test 1758 {cells/uL} 850-3900 N code = ABSOLUTE LYMPHOCYTES) ABSOLUTE MONOCYTES (test 655 {cells/uL} 200-950 N code = ABSOLUTE MONOCYTES) ABSOLUTE EOSINOPHILS (test 207 {cells/uL} 15-500 N code = ABSOLUTE EOSINOPHILS) ABSOLUTE BASOPHILS (test 78 {cells/uL} 0-200 N code = ABSOLUTE BASOPHILS) NEUTROPHILS (test code = 51.8 % N NEUTROPHILS) LYMPHOCYTES (test code = 31.4 % N LYMPHOCYTES) MONOCYTES; Normal (test 11.7 % N code = 41121-5) EOSINOPHILS; Normal (test 3.7 % N code = 80364-1) BASOPHILS; Normal (test 1.4 % N code = 49732-8) [facility][QL] PTH, INTACT (WITHOUT CALCIUM)2019-10-11 09:10:00 Test Item Value Reference Range Interpretation Comments PARATHYROID 29 pg/ml 14-64 N Interpretive [place] Intact HORMONE, INTACT PTH (test code = Calcium-------- PARATHYROID HORMONE, INTACT) -------Norm al Parathyroid Normal NormalHypoparat hyroidism Low or Low Norm al LowHyperparathy roidism Primary Normal or High High Secondary High Normal or Low Tertiary High HighNon-Parathy roid Hypercalcemia Low or Low Normal High [facility][QL] VITAMIN E (TOCOPHEROL)2019-10-11 09:10:00 Test Item Value Reference Range Interpretation Comments ALPHA-TOCOPHEROL 10.5 mg/L Reference R jere (test code = 5.7-19.9 mg/L ALPHA-TOCOPHEROL) Levels of alpha-tocopherol <5 mg/L are consistent with Vitamin E deficiency in adults.Vitamin supplementation within 24 hours prior to blood draw may affect the accuracy of results. T his test was developed and i ts analytical perf ormance characteristics have been determined by [facility]. It has not been cleared or approved by theFDA. This as say has been validated pursu ant to the CLIA regulation s and is used for clinic al purposes. [id number] 1.9 mg/L <4.4 This test was developed and DUSTIN (test code = its analyt ical performance [id number] characteri stics have been DUSTIN) determined by [facility]. It has not been cleared or approved by theFDA. This as say has been validated pursu ant to the CLIA regulation s and is used for clinic al purposes. [facility][QL] FOLATE, [id number] 09:10:00 Test Item Value Reference Range Interpretation Comments FOLATE, SERUM (test 4.6 ng/ml Referenc e Range code = FOLATE, Low: SERUM) <3.4 Steven rderline: 3.4-5.4 Nor mal: >5.4 [facility][QL] TSH, 3RD [id number] 09:10:00 Test Item Value Reference Range Interpretation Comments TSH; Normal (test 1.41 {MIU/L} N Reference Range code = 17414-5) > or = 20 Years 0.40-4.5 0 Range s First trimes ter 0.26-2.66 Second trimeste r 0.55-2.73 Third trimester 0.43-2.91 [facility][QL] VITAMIN [id number] 09:10:00 Test Item Value Reference Range Interpretation Comments VITAMIN B12 (test code = VITAMIN 978 pg/ml 200-1100 N B12) [facility][QL] VITAMIN B1, WHOLE [id number] 09:10:00 Test Item Value Reference Range Interpretation Comments VITAMIN B1, WHOLE 68 nmol/L 78-185 Vitamin hobbs pplementation BLOOD (test code = within 24 hours prior VITAMIN B1, WHOLE toblood dr rutledge may affect BLOOD) the accuracy of results. This test was d diazoped and its analyti denisse performance characteristics have been determined by [facility]. It has not been cleared or approved by theFDA. This assay has been validated pursuant to the CLIA regula tions and is used for cli nical purposes. [facility][QL] HEMOGLOBIN [id number] 09:10:00 Test Item Value Reference Range Interpretation Comments HEMOGLOBIN A1c; 5.1 {% of <5.7 N For the purp ose of Normal (test code total} screening for the = 4548-4) presence ofdiab etes: <5.7% Con sistent with the absenc e of diabetes5.7-6.4 % Consistent with increased risk for diabetes (prediabetes)> or =6.5% Consistent wit h diabetes This a ssay result is consi stent with a decrease d riskof diabetes. Curre ntly, no consensus exist s regarding use ofhemoglobin A1 c for diagnosis of di abetes in children. Ac cording to [place] Association (ADA)guidelines , hemoglobin A1c <7.0% represents optimalcontrol in non- di abetic patients. Differentmetric s may apply to specif ic patient populat ions. Standards of Me dical Care in Diabete s(ADA). [facility][QL] VITAMIN A (RETINOL)2019-10-11 09:10:00 Test Item Value Reference Range Interpretation Comments VITAMIN A (test 26 {mcg/dl} 38-98 Clin Chem Vol. 34.No.8. code = VITAMIN A) [id number] 8. 1998Vitamin supplementation within 24 hours prior to blood draw may affect the accuracy of results. T his test was developed a nd its analytical perf ormance characteristics have been determined by [facility]. It has not been cleared or approved by theFDA. This assay has been validated pursuant to the CLIA reg ulations and is used for clinical purposes. [facility][Q] QUESTASSURED 25-OH VIT D, (D2,D3), [id number] 09:10:00 Test Item Value Reference Range Interpretation Comments VITAMIN D, 39 ng/ml 30-100 (Note) Vitamin D, 25-Hydroxy 25-OH, TOTAL reports concent rations of two (test code = common forms, 2 5-OHD2 and VITAMIN D, 25-OHD3. 25-OHD 3 indicates both 25-OH, TOTAL) endogenous pro duction and supplementation . 25-OHD2 is an indicator of ex ogenous sources such as diet o r supplementation . Therapy is based on measu rement of Total 25-OHD, with le vels <20 ng/mL indicative of V itamin D deficiency, whi le levels between 20 ng/m L and 30 ng/mL suggest insuffi ciency. Optimal levels are > or = 30 ng/mL. Vitamin D is fa t-soluble and therefore inadv ertent or intentional ing estion of excessively hig h amounts could be toxic. Studi es in children and adults sugg est blood levels would need to e xceed 150 ng/mL before there i s any concern. Shira RODRIGUEZ, Danay RAMON, Caprice prado LEVINE, et al. Evaluation, nohemy atment and prevention of v itamin D deficiency: an Endocrine Society clinica l practice guideline. J Cl in Endocrinol Metab. 2011;96( 7):1911-30. For additional info rmation, please refer to http://Celaton/faq/FAQ10 9 VITAMIN D, 39 ng/ml Reference range : Not established 25-OH, D3 (test code = VITAMIN D, 25-OH, D3) VITAMIN D, <4 (Note)Reference range: Not 25-OH, D2 established Thi s test was (test code = developed and i ts analytical VITAMIN D, performancechar acteristics have 25-OH, D2) been determined by [facility]. It has not beencle ared or approved by the US Food and Drug Administration. Thisassay has been validated pursuant to the CLIA regulation and is usedfor Clinical purpos es.MDFmed [id number] [place] [address],[address] [facility] [id number] 00Lilo Perdomo Note 1 Note 1 For additional information, please refer to http://Memvuatio n.Pavegen Systemsostic Make It Work/faq/FAQ19 9 (This link is being provided for informational/e ducational purposes only.) [facility]] VITAMIN D, 25-HYDROXY, [id number]/MS/[id number] 12:00:01 Test Item Value Reference Range Interpretation Comments Vitamin D, 25-OH, 48.0 ng/ml 30.0-100.0 Reference range is based Total (test code on recommen dations in the = Vitamin D, EndocrineSociet y Clinical 25-OH, Total) Practice Guide line (J Clin Endocrinol Dbzbp0802;96:19 11-1930) [facility]] CMP [id number] 12:00:01 Test Item Value Reference Range Interpretation Comments Sodium Level 139 {mEq/l} 135-145 (test code = 2951-2) Potassium Level 4.5 {mEq/l} 3.5-5.1 (test code = 2823-3) Chloride Level 102 {mEq/l} 95-109 (test code = 5-0) Carbon Dioxide 31 {mEq/l} 24-32 (test code = 2027-9) AGAP (test code = 10.5 {mEq/l} 10.0-20.0 86935-0) Glucose Lvl (test 84 mg/dl 70-99 Adult refe rence range code = 2345-7) values reflec t the clinical guidel inesof the [place] Diabet es Association. Creatinine Lvl 0.90 mg/dl 0.50-1.40 (test code = 2160-0) Blood Urea 15 mg/dl 7-22 Nitrogen (test code = 3094-0) BUN/Creatinine 17 6-25 Ratio (test code = 3097-3) Total Protein 8.3 g/dl 6.4-8.4 (test code = 2885-2) Albumin Lvl (test 4.1 g/dl 3.5-5.0 code = 1751-7) Globulin (test 4.2 g/dl 2.7-4.2 code = 07037-5) A/G Ratio (test 1.0 0.7-1.6 code = 1759-0) Calcium Level 9.5 mg/dl 8.5-10.5 Total (test code = 83861-9) ALT (test code = 38 u/l 0-65 1743-4) AST (test code = 20 u/l 0-37 11643-8) Bili Total (test 0.5 mg/dl 0.2-1.3 code = 1975-2) Alk Phos (test 98 u/l 39-136 The pediatric reference code = 1783-0) ranges for th is test represent a CLSI-basedtrans ference of the CALIPER muriel abase of pediatric refer ence intervals to eSiemens Huger analyzer (Clinical Biochemistry 46 (2013): 8980-7646). [facility] [employer] [facility] has not internally validated these reference ranges and therefore they should be used only in e context of a thoroughcl inical assessment. eGFR (test code = 73 The eGFR i s calculated 16218-8) {ML/MIN/1.7} using the CKD-E PI formula. In [...] Kidney Disease Education Progr am(NKDEP) which kellee mckeony recommends that when the eGFR is used in patientswith ex tremes of body mass index for purposes of eugenia g dosing, the eGFR should be multiplied by t he estimated BMI. [facility][QL] IRON AND TOTAL IRON BINDING [id number] 12:00:01 Test Item Value Reference Range Interpretation Comments Iron (test code = 2498-4) 82 ug/dL 30-160 % Satur Fe (test code = 2502-3) 20 % 12-57 TIBC (test code = 2500-7) 407 ug/dL 228-428 UIBC (test code = UIBC) 325 ug/dL 110-370 [facility]] LIPID [id number] 12:00:01 Test Item Value Reference Range Interpretation Comments Chol; Above High Threshold (test 214 mg/dl <=199 code = 2093-3) Trig; Above High Threshold (test 187 mg/dl <=149 code = 2571-8) HDL Cholesterol; Below Low 48 mg/dl >=61 Threshold (test code = 2085-9) CHD Risk (test code = 97304-9) 4.46 3.90-5.80 LDL; Above High Threshold (test 129 mg/dl <=99 code = 22929-1) VLDL (test code = VLDL) 37 [facility]] TSH, 3RD [id number] 12:00:01 Test Item Value Reference Range Interpretation Comments TSH (test code = 62160-1) 1.160 {uIU/ml} 0.360-3.740 [facility]] VITAMIN [id number] 12:00:01 Test Item Value Reference Range Interpretation Comments Vitamin B12 Level; Above High 1399 pg/ml 254-1320 Threshold (test code = 2132-9) [facility]] FOLATE, [id number] 12:00:01 Test Item Value Reference Range Interpretation Comments Folate Level (test code = 2284-8) 22.3 ng/ml >=3.0 [facility][] CBC (without differential)2019-01-26 12:00:01 Test Item Value Reference Range Interpretation Comments WBC (test code = 6690-2) 8.1 {K/CMM} 3.7-10.4 RBC (test code = 789-8) 4.62 {M/CMM} 4.20-5.40 Hgb (test code = 718-7) 14.7 g/dl 12.0-16.0 Hct (test code = 81183-4) 43.4 % 36.0-48.0 MCV (test code = 787-2) 94.0 fL 80.0-98.0 MCH; Above High Threshold (test 31.8 pg 27.0-31.0 code = 785-6) MCHC (test code = 786-4) 33.8 g/dl 32.0-36.0 RDW (test code = 788-0) 14.4 % 11.5-14.5 Platelet (test code = 91545-4) 339 {K/CMM} 133-450 Mean Platelet Volume (test code 10.2 fL 7.4-10.4 = 97406-4) [facility]] PTH, INTACT (WITHOUT CALCIUM)2019-01-26 12:00:01 Test Item Value Reference Range Interpretation Comments Parathyroid Hormone Intact (test 40.1 pg/ml 18.4-80.1 code = 2731-8) [facility]] HEMOGLOBIN [id number] 12:00:01 Test Item Value Reference Range Interpretation Comments Hemoglobin A1c; Above High Threshold 5.8 % <=5.6 (test code = 4548-4) [facility]] VITAMIN B1, WHOLE [id number] 12:00:01 Test Item Value Reference Range Interpretation Comments Vitamin B1 104.9 66.5-200.0 This test was d eveloped and its Level (test nmol/L performance code = characteristics determined by Vitamin B1 [facility]. It has not been Level) cleared orappro margarita by the Food and Drug Administration. Performed At: [facility] [address] [id number] ra Ines LUDWIG Ph:[phone] [facility][H] Vit [id number] 12:00:01 Test Item Value Reference Range Interpretation [...] the Food and Drug Administration. Performed At: [employer] [id number] [place], [place] [id number] Chacon MD Ph:[phone] [facility][H] Vitamin E [id number] 12:00:01 Test Item Value Reference Range Interpretation Comments Alpha-Tocoph 15.9 mg/L 7.0-25.1 This test was d eveloped and its dustin (test performance code = characteristics determined by [facility]. It has not been cleared dustin) orapproved by [facility] Food and Drug Administration. Gamma-Tocoph 2.1 mg/L 0.5-5.5 This test was d eveloped and its dustin (test performance code = characteristics determined by [facility]. It has not been cleared dustin) orapproved by [facility] Food and Drug Administration. Reference intervals for a lpha and gamma-tocophero ldetermined from National Health and Nutrition ExaminationSurv ey, 7384-7550. Individuals wit h alpha-tocophero l levelsless than 5.0 mg/L are co nsidered vitamin E deficient.Per formed At: [facility] [place] [id number] [facility], [place] [id number] ra Ines LUDWIG Ph:[phone] [facility]
[2021-08-05] MEDS ORDERED: FENTANYL CITR 100 MCG/2 ML ONE (11:54)
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
[2021-08-05 14:27] VITALS: TEMP 98
[2021-08-05 14:29] VITALS: BP 140/70; O2SAT 96
== END 2021-08-05 14:10 | disposition home or self-care (01) ==
LOC: ER 11:17
DX: S29.012A Strain of muscle and tendon of back wall of thorax, initial encounter (principal); S80.01XA Contusion of right knee, initial encounter; S20.211A Contusion of right front wall of thorax, initial encounter; R51.9 Headache, unspecified; I10 Essential (primary) hypertension; E66.9 Obesity, unspecified; Z68.41 Body mass index [BMI] 40.0-44.9, adult; Z88.1 Allergy status to other antibiotic agents; Z88.5 Allergy status to narcotic agent
CPT/HCPCS: 70450; 72125; 71046; 73562; 96374; 99284; J3010